=== PATIENT | female | born 1990 | race Caucasian/White ===

== ENCOUNTER 2016-05-17 08:50 | Day surgery (SDC) | payer OTHER ==
[2016-05-17] VITALS (7 sets, daily range): BP systolic 108–135; BP diastolic 58–72
[~2016-05-17] VITALS: Ht 167.6 cm; Wt 87.3 kg
[~2016-05-17 08:50] MED LIST: HYCET1 ML PO
--- NOTE | 2016-05-17 10:28 | DIAGNOSTIC IMAGING REPORT ---
PROCEDURE: US ABDOMEN ULTRASOUND-LIMITED INDICATION: RUQ PAIN, initial encounter TECHNIQUE: Hay scale and color Doppler sonographic images of the abdomen were obtained. COMPARISON: None. FINDINGS: 9 mm mobile gallstone. There is no wall thickening or pericholecystic fluid. Normal CBD measures 2.7 mm. Negative Rob's sign. Liver measures 19.8 cm with normal echo structure. Normal pancreas. Aorta and IVC are patent. Normal hepatopetal flow. Normal right kidney measures 12 cm. IMPRESSION: 1. Gallstone
--- NOTE | 2016-05-17 11:32 | ED CLINICAL REPORT ---
Clinical Report - Physicians/Mid Levels [facility] [address] [place] [address] 05/17/2016 8:51 Patient: KYLEE BEAVER Time Seen: 09:34. Arrived- By private vehicle. Historian- patient. HISTORY OF PRESENT ILLNESS Chief Complaint: ABDOMINAL PAIN. At its maximum, severity described as 8 / 10. When seen in the E.D., severity described as 8 / 10. Modifying factors- worsened by movement. This started at 1 AM and is still present. It was abrupt in onset. It is described as "pain" and it is described as located in the right upper quadrant and radiating to the upper back. The patient has had vomiting (10 times). She has had diarrhea (10 times). Similar symptoms previously: Twice. ( Known GB disease). Recent medical care: Not recently seen/assessed. REVIEW OF SYSTEMS Last normal menstrual period- 7 days ago. Sexual history - sexually active. No contraception. No difficulty with urination or urination, pain with urination or urinary frequency or urinary frequency. No chills, fever, double vision, ear pain or sore throat. No chest pain, cough, difficulty breathing, black stools or bloody stools. No neck pain or skin rash. Last bowel movement: recently. The patient has had diarrhea, nausea and vomiting. All systems otherwise negative, except as recorded above. PAST HISTORY PCP: [facility] Ops: [facility], Breast BX x 2 Hospitalization: As above. SOCIAL HISTORY Current every day smoker. ADDITIONAL NOTES The nursing notes have been reviewed. PHYSICAL EXAM Vital Signs: 05/17/2016 13:10 BP: 107/53. HR: 85. RR: 14. O2 saturation: 100%. Temp: 98.8 F. Pain level now: 12/09. 05/17/2016 12:53 BP: 107/53. HR: 73. RR: 15. O2 saturation: 100%. Temp: 98.8 F. Pain level now: 12/09. 05/17/2016 12:00 BP: 131/58. HR: 71. RR: 18. O2 saturation: 99%. Temp: 98.2 F. Pain level now: 12/09. 05/17/2016 11:00 BP: 109/67. HR: 70. RR: 12. O2 saturation: 98%. Temp: 98.3 F. Pain level now: 11/08. 05/17/2016 10:38 BP: 111/58. HR: 94. RR: 20. O2 saturation: 100%. Pain level now: 12/09. 05/17/2016 09:46 BP: 106/56. HR: 69. RR: 21. O2 saturation: 96%. Pain level now: 12/09. 05/17/2016 08:57 BP: 126/75. HR: 107. RR: 22. O2 saturation: 97%. Temp: 97.8 F. Pain level now: 02/08. Appearance: Alert. Patient in moderate distress. Eyes: Pupils equal, round and reactive to light. Eyes normal inspection. No scleral icterus. ENT: Pharynx normal. Neck: Normal inspection. CVS: Heart sounds normal. Respiratory: No respiratory distress. Breath sounds normal. Abdomen: Soft. Moderate tenderness in the upper abdomen and right upper quadrant. Bowel sounds normal. No rebound tenderness or guarding. (No inguinal hernias). Back: No CVA tenderness. Skin: Skin warm. Normal skin color. Extremities: Extremities exhibit normal ROM. No lower extremity edema. LABS, X-RAYS, AND EKG Abdominal Sonogram: Gallstones are present. No gallbladder wall thickening, pericholecystic fluid or dilated common duct. The study was interpreted by the radiologist and discussed with the radiologist. Laboratory Tests: UA-Culture if indicated: (NEETA: 05/17/2016 09:00) ( MsgRcvd 05/17/2016 09:59) Final results Test Result Flag Units (Reference) URINE COLOR YELLOW URINE APPEARANCE CLEAR URINE GLUCOSE NEGATIVE (NEGATIVE) URINE BILIRUBIN NEGATIVE (NEGATIVE) URINE KETONE NEGATIVE (NEGATIVE) URINE SPECIFIC GRAVITY 1.025 (1.010-1.030) URINE PH 6.0 (5.0-8.0) URINE PROTEIN NEGATIVE (NEGATIVE) URINE UROBILINOGEN 0.2 EU/dL (0.2-1.0) URINE NITRITE NEGATIVE (NEGATIVE) URINE BLOOD NEGATIVE (NEGATIVE) URINE LEUK ESTERASE NEGATIVE (NEGATIVE) URINE RBC NONE SEEN rbc/hpf (0-1) URINE WBC NONE SEEN wbc/hpf (0-1) URINE EPITHELIAL CELLS 1-3 EPI/hpf (0-5) URINE BACTERIA NONE SEEN (NONE SEEN) URINE COMMENT CULT NOT INDICATED 1+ MUCOUSURINE CULTURES ARE SET-UP BASED ON THE FOLLOWING CRITERIA:POSITIVE NITRITEPOSITIVE LEUKOCYTE ESTERASEGREATER THAN 10 WHITE BLOOD CELLSMODERATE (2+) OR GREATER BACTERIA Urine: (NEETA: 05/17/2016 09:00) ( [facility]/17[facility] 09:27) Final results Test Result Flag Units (Reference) URINE NEGATIVE CBC w Diff: (NEETA: 05/17/2016 09:12) ( [facility] 05/17/2016 10:44) Final results Test Result Flag Units (Reference) WHITE BLOOD COUNT 4.9 K/uL (4.5-11.5) RED BLOOD COUNT 4.97 M/uL (4.00-5.20) HEMOGLOBIN 11.0 L gm/dL (12.0-16.0) HEMATOCRIT 35.3 L % (36.0-46.0) MEAN CELL VOLUME 71 L fL (80-100) MEAN CORPUSCULAR HGB 22 L pg (26-34) MEAN CORPUSCULAR HGB CONC 31 g/dL (31-37) RED CELL DISTRIBUTION WIDTH 16.1 H % (11.6-14.8) PLATELET COUNT 221 K/uL (150-400) POLY % 83 H % (50-75) BAND % 9 H % (0-8) LYMPH 2 L % (25-40) MONO 4 % (3-14) EOSINOPHIL % 2 % (0-4) BASOPHIL % 0 % (0-2) METAMYELOCYTE % 0 % (0-1) MYELOCYTE 0 % (0-1) OTHER CELL TYPE 0 HYPOCHROMIA 2+ ANISOCYTOSIS 1+ MICROCYTOSIS 2+ STOMATOCYTE OCC CMP: (NEETA: 05/17/2016 09:12) ( [facility] 05/17/2016 09:56) Final results Test Result Flag Units (Reference) GLUCOSE 118 H mg/dL (70-110) BUN 9 mg/dL (7-18) CREATININE 0.6 mg/dL (0.6-1.3) Estimated GFR >60 mL/min Estimated GFR- >60 mL/min Note: Persistent reduction over 3 months in eGFR<60 mL/min/1.73 m2 defines CKD. Patients with eGFR values>=60 mL/min/1.73 m2 may also have CKD if evidence ofpersistent proteinuria. Additional information may be foundat www.kidney.org. SODIUM 137 mmol/L (136-145) POTASSIUM 3.7 mmol/L (3.5-5.1) CHLORIDE 103 mmol/L (98-107) CARBON DIOXIDE 22 mmol/L (21-32) CALCIUM 8.5 mg/dL (8.5-10.1) TOTAL PROTEIN 7.9 g/dL (6.4-8.2) ALBUMIN 3.8 g/dL (3.3-5.0) BILIRUBIN, TOTAL 0.3 mg/dL (0.0-1.0) ALKALINE PHOSPHATASE 86 U/L (46-116) AST (SGOT) 16 U/L (15-37) ALT (SGPT) 21 U/L (12-78) LIPASE 110 U/L (73-393) . PROGRESS AND PROCEDURES Course of Care: 10:14 05/17/16. DELGADO- none. Dr Trivedi is here to see the patient and sign his standard orders. Transition orders written by me. Disposition orders written. CLINICAL IMPRESSION Abdominal pain. Biliary colic. (Electronically signed by Fritz Wood MD 05/17/2016 23:15)
--- NOTE | 2016-05-17 11:32 | ED ORDER SUMMARY ---
..... Patient: KYLEE BEAVER OrderSheet [facility] VisitID: [id number] [address] [place] [address] 26y, F Registration Date/Time: 05/17/2016 ORDER SHEET Weight: 87.0 kg (stated) Allergies: No Known Drug Allergy GENERAL ORDERS: Urine Urgent (09:18 05/17/2016 EHkacey R.N. verbal order read back to Aga FRENCH) (9:36 EHassan R.N.) UA-Culture if indicated Urgent (09:05/17/2016 HOMAassashanti R.N. verbal order read back to Aga FRENCH) (9:36 EHassan R.N.) US Abdomen Limited (Yes) Urgent (09:35 05/17/2016 Aga FRENCH) (9:36 EHassan R.N.) CBC w Diff Urgent (09:35 05/17/2016 Aga FRENCH) (9:36 EHassan R.N.) CMP Urgent (09:05/17/2016 Aga FRENCH) (9:36 HOMAassashanti R.N.) Lipase Urgent (09:35 05/17/2016 Aga FRENCH) (9:36 EHassan R.N.) MEDICATION ORDERS: IV FLUIDS: Zofran IV 4 mg (NOW) (09:35 05/17/2016 Aga FRENCH) (9:44 EHassan R.N.) Dilaudid IV 1 mg (NOW) (09:35 05/17/2016 Aga FRENCH) (9:43 EHassan R.N.) Dilaudid IV 0.5 mg (HIGH ALERT MEDICATION, NOW) (11:29 05/17/2016 Zandern R.N. verbal order read back to Aga FRENCH) (11:33 EHassan R.N.) ORDER SHEET NOTES: [Electronically signed by Nora Flor R.N. (13:13 05/17/2016)] [Electronically locked/signed by Nora Flor R.N. (13:13 05/17/2016)]
--- NOTE | 2016-05-17 11:32 | ED NURSING NOTES ---
Clinical Report - Nurses [facility] [place] [address] 05/17/2016 8:51 Patient: KYLEE BEAVER TRIAGE Acuity: LEVEL 3. Chief Complaint: ABDOMINAL PAIN, NAUSEA, VOMITING and DIARRHEA. Alert. No acute distress. SEPSIS SCREEN: Sepsis Screen. Negative (no infection suspected/documented). --09:03 Jesika Reyna R.N. 08:57 05/17/16. BP: 126/75. HR: 107. RR: 22. O2 saturation: 97% on room air. Temp: 97.8 F (oral). Pain level now: 02/08. --09:03 Jesika Reyna R.N. Weight: 87 kg stated. Height/Length: 66 inches Per Patient. BMI: 31. --09:00 Jesika Reyna R.N. Medications Omeprazole Oral. --08:59 Jesika Reyna R.N. FLUoxetine HCl Oral. --08:59 Jesika Reyna R.N. Medication/allergy information source: the patient. --09:03 Jesika Reyna R.N. Allergies No Known Drug Allergy. --08:59 Jesika Reyna R.N. History Arrived by private vehicle. Historian: patient. Accompanied by spouse. Primary physician (César). This started last night. Describes the quality as "pain" and cramping. Relates location as in the right upper quadrant. Notes pain level as 10/10 on arrival and at maximum. Reports last BM was today. 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 (hydrocodone). PAST MEDICAL HX: Last normal menstrual period was 1 week ago. Sexual history - sexually active and engages in unprotected sex. SOCIAL HX: Current every day heavy tobacco smoker (cigarette)- 1 pack per day. History of heavy drug use: marijuana. No alcohol use. FALL RISK ASSESSMENT: Fall risk assessment completed. No fall risk identified. NUTRITIONAL RISK ASSESSMENT: The nutritional risk assessment revealed no deficiencies. FUNCTIONAL ASSESSMENT: Functional assessment: no impairments noted. LEARNING NEEDS ASSESSMENT: The learning needs assessment revealed no barriers. SKIN INTEGRITY ASSESSMENT: Skin integrity risk assessment completed. No skin integrity risk identified. --09:03 Jesika Reyna R.N. PROBLEMS: Gastroenteritis. Sick Contact. Abdominal Pain. Appendicitis. Chronic Back Pain. UTI - Urinary Tract Infection. Spontaneous (Miscarriage). Right ovarian cyst. Intrauterine . Vaginal Bleeding. Care. Food Poisoning. Anemia. Substance Abuse. Ureterolithiasis. Viral Disease. Diarrhea. Vomiting. --09:00 Jesika Reyna R.N. ADDITIONAL SURGERIES: Appendectomy. . Lumpectomy. --09:00 Jesika Reyna R.N. Assessment GENERAL / NEURO / PSYCH: Alert. Oriented X 4. Appears in no acute distress. Sharon Coma Scale: 15- eyes open spontaneously (4); best verbal response- oriented x 4 (5); best motor response- obeys commands (6). Patient appears calm and cooperative. RESPIRATORY: Respirations not labored. CVS: Capillary refill less than 2 seconds. SKIN: Mucous membranes are pink. Skin is warm and dry. --09:03 Jesika Reyna R.N. Interventions ID band on patient. To treatment room. --09:03 Jesika Reyna R.N. PHYSICAL ASSESSMENT 09:03 05/17/16. Ambulatory to room. GENERAL / NEURO / PSYCH: Alert. Oriented X 4. Appears in no acute distress. HEENT: Mucous membranes are pink. RESPIRATORY: Respirations not labored. CVS: Capillary refill less than 2 seconds. SKIN: Skin is warm and dry. --09:03 Jesika Reyna R.N. NURSING PROGRESS NOTES Checked patient name and birthdate: patient confirmed. Instructions provided to collect clean catch urine and patient verbalized understanding. Clean catch urine collected with return of yellow-colored clear urine; sample sent to lab for urinalysis and HCG. Specimen labeled in the presence of the patient. --08:58 Jesika Reyna R.N. 09:03 05/17/16. Patient gowned. Two patient identifiers checked. Bed placed in lowest position. Brakes of bed on. Patient ready for evaluation- chart flagged and ED physician notified. --09:03 Jesika Reyna R.N. 09:24 05/17/2016 Site #1 started via IV in the left wrist with an 20g angiocath; one attempt. Blood drawn: rainbow set. Labeled in the presence of the patient and sent to the lab. Saline lock flushed with 10 mL saline. --09:24 Nora Flor R.N. 09:40 05/17/2016 Zofran (Ondansetron HCl) IVP 4 mg given over 2 minute(s) via site #1. Allergies verified and confirmed 5 rights. IV patency established. IV site checked: no pain, redness, or swelling. IV flushed thoroughly pre- and post-medication administration. --09:44 Nora Flor R.N. 09:43 05/17/2016 Dilaudid (HYDROmorphone HCl PF) IVP 1 mg given over 30 second(s) via site #1. Allergies verified, confirmed 5 rights and sedative warning given to the patient and patient's family. IV patency established. IV site checked: no pain, redness, or swelling. IV flushed thoroughly pre- and post-medication administration. --09:43 Nora Flor R.N. Reassurance given. Reassessment after medication administered. She has had no adverse reaction. GI / : The patient reports nausea. The patient reports abdominal pain. The patient reports diarrhea. Abdomen soft. Abdominal tenderness in the upper abdomen and right upper quadrant. Hyperactive bowel sounds in all quadrants. Two patient identifiers checked. Call light placed in reach. Side rails up x 1. Bed placed in lowest position. Brakes of bed on. --09:47 Nora Flor R.N. 09:46 05/17/16. BP: 106/56 taken on the right arm, via an automated monitor, while lying. HR: 69. RR: 21. O2 saturation: 96% on room air. Pain level now: 12/09. ED physician notified. Additional comments: Dilaudid given as ordered. --09:47 Nora Flor R.N. 10:38 05/17/16. BP: 111/58 taken on the right arm, via an automated monitor, while lying. HR: 94. RR: 20. O2 saturation: 100% on room air. Pain level now: 12/09. --10:41 Nora Flor R.N. Reassurance given. Reassessment after procedure and medication administered. She has had no adverse reaction. Overall patient status is the same- she states feels worse. ( US finished and pt is now c/o of pain of 8/10 post procedure.). GI / : The patient reports nausea. The patient reports abdominal pain. Denies diarrhea or vomiting. Call light placed in reach. Side rails up x 1. Bed placed in lowest position. Brakes of bed on. Brakes of chair on. --10:41 Nora Flor R.N. 10:00 05/17/2016 Zofran IVP Response: no adverse reaction symptoms have improved. --11:16 Nora Flor R.N. 10:16 05/17/2016 Dilaudid IVP Response: no adverse reaction symptoms have improved the patient feels better. --11:16 Nora Flor R.N. 11:33 05/17/2016 Dilaudid (HYDROmorphone HCl PF) IVP 0.5 mg given over 30 second(s) via site #1. Allergies verified, confirmed 5 rights and sedative warning given to the patient. IV patency established. IV site checked: no pain, redness, or swelling. IV flushed thoroughly pre- and post-medication administration. --11:33 Nora Flor R.N. Reassurance given. Reassessment after medication administered. Overall patient status is the same- she states feels better. ( Dr. Wood at bedside, explanation given to pt as to results of US, Dilaudid given as ordered, no further vomiting). GI / : The patient reports nausea. The patient reports abdominal pain. Denies diarrhea or vomiting. Two patient identifiers checked. Call light placed in reach. Side rails up x 1. Brakes of bed on. Brakes of chair on. --11:36 Nora Flor R.N. 11:00 05/17/16. BP: 109/67 taken on the left arm, via an automated monitor, while lying. HR: 70. RR: 12. O2 saturation: 98% on room air. Temp: 98.3 F. Pain level now: 710. Additional comments: Dilaudid 0.5mg given as ordered. --11:36 Nora Flor R.N. 12:00 05/17/16. BP: 131/58 (regular adult cuff) taken on the right arm, via an automated monitor, while lying. HR: 71. RR: 18. O2 saturation: 99% on room air. Temp: 98.2 F. Pain level now: 12/09. --12:44 Nora Flor R.N. late entry - 12:00 PM. Reassurance given. ( Dr. Armstrong at bedside, pt being admitted to room 301.). GI / : The patient reports abdominal pain. --12:44 Nora Flor R.N. 12:45 05/17/2016 Dilaudid IVP Response: no adverse reaction pain is improving. Symptoms are the same. The patient feels the same. --12:45 Nora Flor R.N. Reassurance given. The patient is calm. Overall patient status- she states feels the same. ( Will be transferred to unit and then surgery, awaiting on RN to call to send pt upstairs). GI / : The patient reports nausea. The patient reports abdominal pain. Denies diarrhea or vomiting. Abdomen soft. Bowel sounds within normal limits. SKIN: Skin is warm and dry. Skin color within normal limits. Care transferred and report given (RN for 301). --12:55 Nora Flor R.N. 12:53 05/17/16. BP: 107/53 taken on the right arm, via an automated monitor, while lying. HR: 73. RR: 15. O2 saturation: 100%. Temp: 98.8 F (oral). Pain level now: 12/09. --12:55 Nora Flor R.N. DISPOSITION / DISCHARGE 13:11 05/17/2016 Site #1 reassessed; patent and no signs of infection or infiltration. Line flushed with saline. Good blood return present. Converted to saline lock. Flushed with saline. --13:11 Nora Flor R.N. Departure time: 1311 PM. Condition at departure: unchanged and stable. The goals identified in the patient's plan of care were met. Transferred (1311 PM). Transported via wheelchair by transport team. ( Pt transferred safely to room 301). FALL RISK ASSESSMENT: Fall risk assessment completed. No fall risk identified. --13:12 Nora Flor R.N. 13:10 05/17/16. BP: 107/53 taken on the right arm, while lying. HR: 85. RR: 14. O2 saturation: 100%. Temp: 98.8 F (oral). Pain level now: 12/09. --13:13 Nora Flor R.N. Locked/Released at 05/17/2016 13:13 by Nora Flor R.N.
--- NOTE | 2016-05-17 11:32 | ED ORDER SUMMARY ---
..... Patient: KYLEE BEAVER OrderSheet [facility] VisitID: [id number] [address] [place] [address] 26y, F Registration Date/Time: 05/17/2016 ORDER SHEET Weight: 87.0 kg (stated) Allergies: No Known Drug Allergy GENERAL ORDERS: Urine Urgent (09:18 05/17/2016 EHkacey R.N. verbal order read back to Aga FRENCH) (9:36 EHassan R.N.) UA-Culture if indicated Urgent (09:05/17/2016 HOMAassashanti R.N. verbal order read back to Aga FRENCH) (9:36 EHassan R.N.) US Abdomen Limited (Yes) Urgent (09:35 05/17/2016 Aga FRENCH) (9:36 EHassan R.N.) CBC w Diff Urgent (09:35 05/17/2016 Aga FRENCH) (9:36 EHassan R.N.) CMP Urgent (09:05/17/2016 Aga FRENCH) (9:36 HOMAassashanti R.N.) Lipase Urgent (09:35 05/17/2016 Aga FRENCH) (9:36 EHassan R.N.) MEDICATION ORDERS: IV FLUIDS: Zofran IV 4 mg (NOW) (09:35 05/17/2016 Aga FRENCH) (9:44 EHassan R.N.) Dilaudid IV 1 mg (NOW) (09:35 05/17/2016 Aga FRENCH) (9:43 EHassan R.N.) Dilaudid IV 0.5 mg (HIGH ALERT MEDICATION, NOW) (11:29 05/17/2016 Zandern R.N. verbal order read back to Aga FRENCH) (11:33 EHassan R.N.) ORDER SHEET NOTES: [Electronically signed by Nora Flor R.N. (13:13 05/17/2016)] [Electronically locked/signed by Nora Flor R.N. (13:13 05/17/2016)]
[2016-05-17] MEDS ORDERED: PRILOSEC20 MG PO (14:01)
[2016-05-17] MEDS ORDERED: FLUOXETINE HCL20 MG PO (14:02)
--- NOTE | 2016-05-17 15:46 | DIAGNOSTIC IMAGING REPORT ---
PROCEDURE: XR INTRAOPERATIVE LAP PER INDICATION: LAP PER WITH GRAMS TECHNIQUE: Intraoperative fluoroscopy provided for Dr. Armstrong performing an intraoperative cholangiogram following cholecystectomy. Total fluoroscopy time 0.1-minute Cumulative dose 3.6 mGy. COMPARISON: Abdominal ultrasound 05/07/2015 FINDINGS: One intraoperative fluoroscopic spot images of the right upper quadrant of the abdomen demonstrate cannulation of the cystic duct stump and opacification of the intrahepatic and extrahepatic biliary tree. There are no filling defects. There is normal passage of contrast into the duodenum. IMPRESSION: 1. Negative intraoperative cholangiogram.
[2016-05-17] MEDS ORDERED: PERCOCET1 TA1 PO (16:02)
--- NOTE | 2016-05-17 16:03 | Provider's Discharge Care Plan ---
Problem, Goal, Plan Problem List 1. S/P laparoscopic cholecystectomy
--- NOTE | 2016-05-17 16:03 | Provider's Discharge Care Plan ---
Problem, Goal, Plan Problem List 1. S/P laparoscopic cholecystectomy
--- NOTE | 2016-05-17 16:26 | CONSULTATION REPORT ---
DATE OF CONSULTATION: 05/17/2016 CHIEF COMPLAINT: 1. Abdominal pain HISTORY OF PRESENT ILLNESS: The patient is a 26-year-old woman who presented with abdominal pain and vomiting since 10 p.m. yesterday. The patient reports that she had similar, more mild symptoms occurring about once a month. She is known to have cholelithiasis and has been told that she is having gallbladder attacks about monthly, and was apparently considering surgery. On this occasion, the attack became worse and would not relent. There is no history of jaundice or pancreatitis. MEDICAL/SURGICAL HISTORY: Medical history of GERD and posttraumatic anxiety. Past surgical history is x2 in 2013 and 2014, breast biopsy for benign mass. Laparoscopic appendectomy about 2 months ago. MEDICATIONS: 1. Fluoxetine for depression and anxiety. 2. Omeprazole for GERD. ALLERGIES: 1. VICODIN, CAUSING NAUSEA AND VOMITING. THE PATIENT CAN TOLERATE PERCOCET. SOCIAL HISTORY: The patient is . She smokes about 1 pack per day. Does not take alcohol. 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 The patient's first child at age 3 from a brain cancer, which is the source of the patient's posttraumatic anxiety. FAMILY HISTORY: There is a family history of kidney stones. Her parents are alive and well. REVIEW OF SYSTEMS: A multipoint review of systems was obtained, covering at least 12 systems. The patient reports no additional symptoms in any of the systems covered with her today. PHYSICAL EXAMINATION: VITAL SIGNS: Initial blood pressure 126/75, heart rate of 107, respirations 22, temperature 97.8, O2 saturation 97%. GENERAL: The patient is alert and cooperative. Her mental status is normal. She is oriented to time and place. Her cranial nerves all appear to function well. She has normal facial movements. HEENT: Her ears and nose demonstrate no gross external lesions. Eyes are equal. There is no icterus. NECK: Without palpable masses or thyromegaly. There is no lymphadenopathy. CHEST: Clear to auscultation. HEART: Regular, without murmur or gallop. ABDOMEN: Reveals some fresh laparoscopic scars. Otherwise, there is tenderness in the right upper quadrant with localized involuntary guarding, but negative Rob sign. Bowel sounds are active. EXTREMITIES: Symmetric. She appears to moves without restriction. IMPRESSION: 1. Cholelithiasis with acute and chronic cholecystitis PLAN: I recommended the patient undergo a laparoscopic cholecystectomy with cholangiography. I reviewed with the patient the potential risks, such as infection, bleeding, scars, pain, damage to local structures, common duct stones and pancreatitis. She appeared to understand these and other risks of surgery and would like to proceed with surgery as described to her.
--- NOTE | 2016-05-17 19:51 | OPERATIVE REPORT ---
DATE OF SURGERY: 05/17/2016 SURGEON:Александр Trivedi MD TESTING PROJECTS ADMINISTRATOR: Patrica Perez III, MD PREOPERATIVE DIAGNOSIS: 1. Cholelithiasis with acute and chronic cholecystitis POSTOPERATIVE DIAGNOSIS: 1. Cholelithiasis with acute and chronic cholecystitis PROCEDURE PERFORMED: 1. Laparoscopic cholecystectomy with cholangiography ANESTHESIA: General. INDICATIONS: The patient is a 26-year-old woman with unremitting right upper quadrant abdominal pain and cholelithiasis. SURGICAL TECHNIQUE: The patient was taken to the operating room, where a general anesthetic was administered and patient prepped and draped in usual sterile fashion. An orogastric tube, IV antibiotics, and sequential compression devices were in place. A local anesthetic of 0.5% Marcaine with epinephrine was used at each incision site. An infraumbilical incision was made and a Veress needle used to insufflate the abdominal cavity. A 10 mm cannula was passed and visualization was obtained. This demonstrated some adhesions in the lower abdomen from previous and appendectomy. The upper abdomen was visualized and there were no adhesions in this area. Three additional trocars were placed in the usual position. The gallbladder was elevated. It was found be somewhat opaque, but not acutely distended. The omental adhesions were taken down with blunt and electrocautery dissection. The cystic duct was isolated at neck of the gallbladder. A clip was placed and a fluoroscopic cholangiogram carried out demonstrating free flow into duodenum and no filling defects. The cystic duct and cystic artery were both doubly clipped and divided and the gallbladder stripped from the gallbladder fossa using electrocautery. It was delivered to the upper midline trocar site where it was emptied of bile and removed and submitted for histopathology. The operative site was inspected and found to be hemostatic. A small amount of additional Marcaine with epinephrine was instilled and gas was evacuated. The midline skin sites were closed with interrupted subcuticular 4-0 Vicryl suture. Steri-Strips and dressings were placed at all sites. The patient left in good condition.
--- NOTE | 2016-05-17 23:15 | ED MAR SUMMARY ---
..... Medication Administration Record [facility] [address] [place] [address] Patient: KYLEE BEAVER Visit ID: [id number] 26y, F Weight: 87.0 kg Height/Length: 66 in BMI: 31 ALLERGIES: No Known Drug Allergy Given 09:40 05/17/2016 Nora Flor R.N. Medication Administered: ZOFRAN [IVP] (ONDANSETRON HCL), Dose: 4 mg IVP over 2 minute(s), Site: #1 left wrist. Medication Ordered: Zofran IV 4 mg (NOW). Given 09:43 05/17/2016 Nora Flor R.N. Medication Administered: DILAUDID [IVP] (HYDROMORPHONE HCL PF), Dose: 1 mg IVP over 30 second(s), Site: #1 left wrist. Medication Ordered: Dilaudid IV 1 mg (NOW). Given 11:33 05/17/2016 Nora Flor R.NDenae Medication Administered: DILAUDID [IVP] (HYDROMORPHONE HCL PF), Dose: 0.5 mg IVP over 30 second(s), Site: #1 left wrist. Medication Ordered: Dilaudid IV 0.5 mg (HIGH ALERT MEDICATION, NOW).
--- NOTE | 2016-05-17 23:15 | ED MED RECONCILIATION SUMMARY ---
Patient: KYLEE BEAVER Medication Reconciliation Report [facility] VisitID: [id number] [address] [place] [address] 26y, F Registration Date/Time: 05/17/2016 Weight: 87.0 kg Height/Length: 66 in. BMI: 31.0 ALLERGIES: No Known Drug Allergy The patient's Home Medications are listed below: THE FOLLOWING MEDICATIONS NEED TO BE RECONCILED: FLUoxetine HCl Oral Omeprazole Oral The source(s) of the original Home Medication information: patient The following Medications were given to the patient in the Emergency Department: Dilaudid [IVP] IVP 1 mg, administered: 05/17/2016 9:43:00 AM Zofran [IVP] IVP 4 mg, administered: 05/17/2016 9:40:00 AM Dilaudid [IVP] IVP 0.5 mg, administered: 05/17/2016 11:33:00 AM The following Medications were prescribed to the patient: None.
--- NOTE | 2016-05-17 23:15 | ED MED RECONCILIATION SUMMARY ---
Patient: KYLEE BEAVER Medication Reconciliation Report [facility] VisitID: [id number] [address] [place] [address] 26y, F Registration Date/Time: 05/17/2016 Weight: 87.0 kg Height/Length: 66 in. BMI: 31.0 ALLERGIES: No Known Drug Allergy The patient's Home Medications are listed below: THE FOLLOWING MEDICATIONS NEED TO BE RECONCILED: FLUoxetine HCl Oral Omeprazole Oral The source(s) of the original Home Medication information: patient The following Medications were given to the patient in the Emergency Department: Dilaudid [IVP] IVP 1 mg, administered: 05/17/2016 9:43:00 AM Zofran [IVP] IVP 4 mg, administered: 05/17/2016 9:40:00 AM Dilaudid [IVP] IVP 0.5 mg, administered: 05/17/2016 11:33:00 AM The following Medications were prescribed to the patient: None.
--- NOTE | 2016-05-17 23:15 | ED DISCHARGE INSTRUCTIONS ---
Patient: KYLEE BEAVER General Instructions [facility] VisitID: [id number] [address] [place] [address] 26y, F Registration Date/Time: 05/17/2016 Abdominal pain. Biliary colic. (Electronically signed by Fritz Wood MD 05/17/2016 23:15)
--- NOTE | 2016-05-17 23:15 | ED DISCHARGE INSTRUCTIONS ---
Patient: KYLEE BEAVER General Instructions [facility] VisitID: [id number] [address] [place] [address] 26y, F Registration Date/Time: 05/17/2016 Abdominal pain. Biliary colic. (Electronically signed by Fritz Wood MD 05/17/2016 23:15)
--- NOTE | 2016-05-17 23:15 | ED MAR SUMMARY ---
..... Medication Administration Record [address] [place] [address] Patient: KYLEE BEAVER Visit ID: [id number] 26y, F Weight: 87.0 kg Height/Length: 66 in BMI: 31 ALLERGIES: No Known Drug Allergy Given 09:40 05/17/2016 Nora Flor R.N. Medication Administered: ZOFRAN [IVP] (ONDANSETRON HCL), Dose: 4 mg IVP over 2 minute(s), Site: #1 left wrist. Medication Ordered: Zofran IV 4 mg (NOW). Given 09:43 05/17/2016 Nora Flor R.N. Medication Administered: DILAUDID [IVP] (HYDROMORPHONE HCL PF), Dose: 1 mg IVP over 30 second(s), Site: #1 left wrist. Medication Ordered: Dilaudid IV 1 mg (NOW). Given 11:33 05/17/2016 Nora Flor R.NDenae Medication Administered: DILAUDID [IVP] (HYDROMORPHONE HCL PF), Dose: 0.5 mg IVP over 30 second(s), Site: #1 left wrist. Medication Ordered: Dilaudid IV 0.5 mg (HIGH ALERT MEDICATION, NOW).
== END 2016-05-17 19:42 | disposition home or self-care (01) ==
LOC: ED SRH 08:50 → TRANS SRH 11:49 → CC SRH 13:11 → SDC SRH 13:11 → CC SRH 13:32 → SDC SRH 13:48 → CC SRH 13:48 → SDC SRH 13:50 → CC SRH 13:50 → SDC SRH 19:42
PROVIDERS: Surgery
PROC: 0FT44ZZ Resection of Gallbladder, Percutaneous Endoscopic Approach (ICD-10-PCS; principal; 2016-05-17 14:45)
PROC: BF131ZZ Fluoroscopy of Gallbladder and Bile Ducts using Low Osmolar Contrast (ICD-10-PCS; principal; 2016-05-17 14:45)
DX: K80.12 Calculus of gallbladder with acute and chronic cholecystitis without obstruction (principal); R11.2 Nausea with vomiting, unspecified; Z72.0 Tobacco use

== ENCOUNTER 2016-05-20 19:00 | Emergency (ER) | payer OTHER ==
[~2016-05-20 19:00] MED LIST changes: +FLUOXETINE HCL20 MG PO; +PERCOCET1 TA1 PO; +PRILOSEC20 MG PO
--- NOTE | 2016-05-20 20:28 | DIAGNOSTIC IMAGING REPORT ---
PROCEDURE: XR CHEST 2 VIEW INDICATION: FEVER, initial encounter TECHNIQUE: PA and lateral view. COMPARISON: Chest x-ray 05/08/2015 FINDINGS: Poor inspiration with small left basilar infiltrate. Cardiovascular structures are normal. Bony thorax is unremarkable. IMPRESSION: 1. Small left basilar infiltrate versus atelectasis.
--- NOTE | 2016-05-20 22:51 | ED ORDER SUMMARY ---
..... Patient: KYLEE BEAVER OrderSheet [facility] VisitID: [id number] [address] [place], [place] [id number] 26y, F Registration Date/Time: 05/20/2016 ORDER SHEET Weight: 87.0 kg (stated) Allergies: No Known Drug Allergy GENERAL ORDERS: Chest 2V Urgent (20:05/20/2016 EKoroleva P.A.-C) (Ack 20:03 LTapper) (20:19 EInderbitzen R.N.) CBC w Diff Urgent (20:05/20/2016 EKoroleva P.A.-C) (Ack 20:03 LTapper) (20:06 EInderbitzen R.N.) CMP Urgent (:05/20/2016 EKoroleva P.A.-C) (Ack 20:03 LTapper) (20:06 EInderbitzen R.N.) UA-Culture if indicated Urgent (20:05/20/2016 EKoroleva P.A.-C) (Ack 20:03 LTapper) (20:06 EInderbitzen R.N.) Lipase Urgent (:05/20/2016 EKoroleva P.A.-C) (Ack 20:03 LTapper) (20:06 EInderbitzen R.N.) NPO (20:05/20/2016 EKoroleva P.A.-C) (20:06 EInderbitzen R.N.) MEDICATION ORDERS: Phenergan IV 12.5 mg (HIGH ALERT MEDICATION, NOW) (20:19 05/20/2016 EKoroleva P.A.-C) (20:24 EInderbitzen R.N.) Azithromycin PO 500 mg (NOW) (22:05/20/2016 EKoroleva P.A.-C) (23:02 TLewis R.N.) Phenergan IV 12.5 mg (HIGH ALERT MEDICATION, NOW) (22:27 05/20/2016 EKoroleva P.A.-C) (22:36 EInderbitzen R.N.) Hydrocodone-APAP PO 5/325 mg (NOW, HIGH ALERT MEDICATION) (22:27 05/20/2016 EKoroleva P.A.-C) (22:37 EInderbitzen R.N.) IV FLUIDS: IV NS : initial bolus 1000 mL (1000 mL/hr), then 1000 mL/hr for X1 (NOW); Skyler (19:59 05/20/2016 EKoroleva P.A.-C) (20:07 EInderbitzen R.N.) Dilaudid IV 0.5 mg (HIGH ALERT MEDICATION, NOW) (19:59 05/20/2016 EKoroleva P.A.-C) (20:24 EInderbitzen R.N.) Zofran IV 4 mg (NOW) (22:27 05/20/2016 EKoroleva P.A.-C) (22:36 EInderbitzen R.N.) ORDER SHEET NOTES: [Electronically signed by Benjie Blackwell R.N. (23:08 05/20/2016)] [Electronically signed by Sofi Urrutia P.A.-C (13:10 05/21/2016)] [Electronically locked/signed by Benjie Blackwell R.N. (23:08 05/20/2016)]
--- NOTE | 2016-05-20 22:51 | ED CLINICAL REPORT ---
Clinical Report - Physicians/Mid Levels [facility] [address] [place] [address] 05/20/2016 19:00 Patient: KYLEE BEAVER Time Seen: 2016. Arrived- By private vehicle. Historian- patient. HISTORY OF PRESENT ILLNESS Chief Complaint: ABDOMINAL PAIN. 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 (A 26-year-old female, 4 days postop, developed pains well as fevers up to 102 and 103 over the last 2 days, has positive flatus. Some urgency with urination. Has had emesis. No sick contacts. Weakness. Family recently ill with flulike symptoms. She denies shortness of breath, lower extremity swelling. She is out of her medications, and thent and persistent since surgery, pain to the area is not new.). Recent medical care: The patient was seen recently and hospitalized. ( holly weber). REVIEW OF SYSTEMS No constipation, black stools, difficulty with urination, pain with urination or urinary frequency. No chest pain. She has had fever. All systems otherwise negative, except as recorded above. PAST HISTORY Problems: Biliary Colic. Gastroenteritis. Sick Contact. Abdominal Pain. Appendicitis. Chronic Back Pain. UTI - Urinary Tract Infection. Spontaneous (Miscarriage). Right ovarian cyst. Intrauterine . Vaginal Bleeding. Care. OB History. Food Poisoning. Anemia. Substance Abuse. Ureterolithiasis. Viral Disease. Diarrhea. Vomiting. Additional Surgeries: Appendectomy. Cholecystectomy. . Lumpectomy. Medications: Zofran ODT Oral. Omeprazole Oral. FLUoxetine HCl Oral. Allergies: No Known Drug Allergy. SOCIAL HISTORY Smoker- current status unknown. History of drug use: marijuana. No alcohol use. ADDITIONAL NOTES The nursing notes have been reviewed. PHYSICAL EXAM Vital Signs: 05/20/2016 23:03 BP: 109/54. HR: 85. RR: 15. O2 saturation: 95%. Appearance: Alert. No acute distress. ENT: Nose normal. Pharynx normal. Neck: Normal inspection. Neck supple. CVS: Normal heart rate and rhythm. Heart sounds normal. Respiratory: No respiratory distress. Breath sounds normal. No decreased air movement or rales. Abdomen: Mild tenderness diffusely. (incisions appear clean dry and intact no surrounding erythema.). Skin: Skin warm. No rash. Neuro: Oriented X 3. LABS, X-RAYS, AND EKG Chest X-ray: (IMPRESSION: 1. Small left basilar infiltrate versus atelectasis. Electronically Final signed by:Oswaldo Wilhelm MD 05/20/2016 8:28:45 PM). Laboratory Tests: UA-Culture if indicated: (NEETA: 05/20/2016 19:50) ( MsgRcvd 05/20/2016 20:35) Final results Test Result Flag Units (Reference) URINE COLOR YELLOW URINE APPEARANCE CLEAR URINE GLUCOSE NEGATIVE (NEGATIVE) URINE BILIRUBIN NEGATIVE (NEGATIVE) URINE KETONE 2+ (NEGATIVE) URINE SPECIFIC GRAVITY 1.025 (1.010-1.030) URINE PH 6.5 (5.0-8.0) URINE PROTEIN TRACE (NEGATIVE) URINE UROBILINOGEN 0.2 EU/dL (0.2-1.0) URINE NITRITE NEGATIVE (NEGATIVE) URINE BLOOD 1+ (NEGATIVE) URINE LEUK ESTERASE NEGATIVE (NEGATIVE) URINE RBC 1-3 rbc/hpf (0-1) URINE WBC 1-3 wbc/hpf (0-1) URINE EPITHELIAL CELLS 5-10 EPI/hpf (0-5) URINE BACTERIA TRACE (<1+) (NONE SEEN) URINE COMMENT CULT NOT INDICATED 1+ MUCUSURINE CULTURES ARE SET-UP BASED ON THE FOLLOWING CRITERIA:POSITIVE NITRITEPOSITIVE LEUKOCYTE ESTERASEGREATER THAN 10 WHITE BLOOD CELLSMODERATE (2+) OR GREATER BACTERIA CBC w Diff: (NEETA: 05/20/2016 19:50) ( [facility] 05/20/2016 20:25) Final results Test Result Flag Units (Reference) WHITE BLOOD COUNT 5.6 K/uL (4.5-11.5) RED BLOOD COUNT 4.78 M/uL (4.00-5.20) HEMOGLOBIN 11.1 L gm/dL (12.0-16.0) HEMATOCRIT 34.5 L % (36.0-46.0) MEAN CELL VOLUME 72 L fL (80-100) MEAN CORPUSCULAR HGB 23 L pg (26-34) MEAN CORPUSCULAR HGB CONC 32 g/dL (31-37) RED CELL DISTRIBUTION WIDTH 16.5 H % (11.6-14.8) PLATELET COUNT 156 K/uL (150-400) NEUTROPHIL % 77.4 H % (50-75) LYMPH % 15.9 L % (25-40) MONO % 6.5 % (3-14) EOSINOPHIL % 0 % (0-4) BASOPHIL % 0.2 % (0-2) CMP: (NEETA: 05/20/2016 19:50) ( MsgRcvd 05/20/2016 20:52) Final results Test Result Flag Units (Reference) GLUCOSE 92 mg/dL (70-110) BUN 5 L mg/dL (7-18) CREATININE 0.5 L mg/dL (0.6-1.3) Estimated GFR >60 mL/min Estimated GFR- >60 mL/min Note: Persistent reduction over 3 months in eGFR<60 mL/min/1.73 m2 defines CKD. Patients with eGFR values>=60 mL/min/1.73 m2 may also have CKD if evidence ofpersistent proteinuria. Additional information may be foundat www.kidney.org. SODIUM 140 mmol/L (136-145) POTASSIUM 3.2 L mmol/L (3.5-5.1) CHLORIDE 104 mmol/L (98-107) CARBON DIOXIDE 25 mmol/L (21-32) CALCIUM 8.3 L mg/dL (8.5-10.1) TOTAL PROTEIN 7.0 g/dL (6.4-8.2) ALBUMIN 3.3 g/dL (3.3-5.0) BILIRUBIN, TOTAL 0.3 mg/dL (0.0-1.0) ALKALINE PHOSPHATASE 73 U/L (46-116) AST (SGOT) 28 U/L (15-37) ALT (SGPT) 26 U/L (12-78) LIPASE 108 U/L (73-393) . PROGRESS AND PROCEDURES Course of Care: Patient here in the ER doing well, family with recent influenza symptoms. Patient also with fevers, small amount of atelectasis noticed on chest x-ray, given postop fever, will treat with antibiotics. She may have a virus in addition, discussed this with the patient. 05/20/2016 23:03 BP: 109/54. HR: 85. RR: 15. O2 saturation: 95%. 05/20/2016 21:25 BP: 122/77. HR: 78. RR: 16. O2 saturation: 95%. 05/20/2016 20:25 BP: 123/77. HR: 88. RR: 20. O2 saturation: 95%. Patient is stable. Physical exam findings are improved. Symptoms better. Patient/family counseled. Disposition: Discharged. Condition: good. CLINICAL IMPRESSION Acute fever Acute bronchitis. INSTRUCTIONS Drink plenty of fluids. Warnings: Further evaluation is necessary. Prescription Medications: Hydrocodone/APAP 5mg / 325mg: take 1 orally every 6 hours as needed for pain. Dispense twelve (12). No refill. Zithromax 250 mg tablets: take 2 orally today, followed by 1 daily for the next 4 days. No refills. Substitution is permissible. tamiflu 75 mg po once daily. Follow-up: Follow up with your doctor in three days. (Electronically signed by Sofi Urrutia P.A.-C 05/21/2016 13:10)
--- NOTE | 2016-05-20 22:51 | ED NURSING NOTES ---
Clinical Report - Nurses [facility] [address] [place] [address] 05/20/2016 19:00 Patient: KYLEE BEAVER TRIAGE Triage time 19:14 May 20 2016. Acuity: LEVEL 3. Chief Complaint: (Post operative Choly, fever). SEPSIS SCREEN: Sepsis Screen: negative. Negative (no infection suspected/documented). SHARON COMA SCORE: Sharon Coma Scale: 15- eyes open spontaneously (4); best verbal response- oriented x 4 (5); best motor response- obeys commands (6). --19:18 Smita Jon 19:14 05/20/16. BP: 124/78. HR: 94. RR: 18. O2 saturation: 95% on room air. Temp: 99 F (oral). Pain level now: 12/09. --19:18 Smita Jon ( Patient took PO tylenol about 5 hours ago). --19:22 Smita Jon. Weight: 87 kg stated. Height/Length: 66 inches Per Patient. BMI: 31. --19:16 Smita Jon. Medications FLUoxetine HCl Oral. --19:16 Smita Jon Omeprazole Oral. --19:16 Smita Jon Zofran ODT Oral. --19:16 Smita Jon. Medication/allergy information source: the patient. --19:18 Smita Jon. Allergies No Known Drug Allergy. --19:17 Smita Jon. History Arrived by private vehicle. Historian: patient. Unaccompanied. Onset. (SUrgery Tuesday, Fever began today). ( Patient reports removal of gallbladder on Tuesday by Dr. Trivedi. She reports vomiting and fever that began about five hours ago. She attempted to contact Dr. Trivedi and was unable to be seen.). PAST MEDICAL HX: Immunizations: up-to-date. Last normal menstrual period- 2 weeks ago. SOCIAL HX: Heavy tobacco smoker (cigarette)- 1 pack per day. History of drug use: marijuana. No alcohol use. No infectious disease exposure. ABUSE ASSESSMENT: No report of abuse. FALL RISK ASSESSMENT: Fall risk assessment completed. No fall risk identified. NUTRITIONAL RISK ASSESSMENT: The nutritional risk assessment revealed no deficiencies. FUNCTIONAL ASSESSMENT: Functional assessment: no impairments noted. LEARNING NEEDS ASSESSMENT: The learning needs assessment revealed no barriers. SKIN INTEGRITY ASSESSMENT: Skin integrity risk assessment completed. No skin integrity risk identified. --19:18 Smita Jon Primary physician (Melvina Lindsey). --19:18 Smita Jon. PROBLEMS: Appendicitis. UTI - Urinary Tract Infection. Spontaneous (Miscarriage). Right ovarian cyst. Anemia. Substance Abuse. Ureterolithiasis. --19:17 Smita Jon. ADDITIONAL SURGERIES: Appendectomy. Cholecystectomy. . Lumpectomy. --19:17 Smita Jon. Interventions ID band on patient. To treatment room. --19:18 Smita Jon. PHYSICAL ASSESSMENT Ambulatory to room. Patient gowned. GENERAL / NEURO / PSYCH: Alert. Oriented X 4. Appears in pain and anxious. HEENT: Mucous membranes are pink. RESPIRATORY: Respirations not labored. CVS: Capillary refill less than 2 seconds. SKIN: Skin is warm and dry. Normal skin turgor. ( 4 small [address] in place.). --19:52 Vanda Hurst R.N. NURSING PROGRESS NOTES Patient gowned. Head of bed elevated. Two patient identifiers checked. Call light placed in reach. Side rails up x 2. Bed placed in lowest position. Brakes of bed on. Patient ready for evaluation. --19:52 Vanda Hurst R.N. 19:52 05/20/16. BP: 127/77. HR: 80. RR: 22. O2 saturation: 95%. Pain level now: 12/09. 19:14 05/20/16. BP: 124/78. HR: 94. RR: 18. O2 saturation: 95% on room air. Temp: 99 F (oral). Pain level now: 12/09. --19:53 Vanda Hurst R.N. ( Ran out of pain med yesterday). --19:53 Vanda Hurst R.N. 19:54 05/20/16. Temp: 98.8 F. --19:54 Vanda Hurst R.N. 20:02 05/20/2016 Site #1 started via IV in the right antecubital space with an 20g angiocath, with aseptic technique and good blood return; one attempt. Blood drawn: rainbow set. Labeled in the presence of the patient and sent to the lab. Saline lock flushed with 10 mL saline. --20:06 Bharati Hidalgo R.N. 20:03 05/20/2016 Started bag #1 1000 mL IV Fluids IV NS (Saline); at 999 mL/hr over 1 hour(s) via site #1 via IV pump. Allergies verified and confirmed 5 rights. IV patency established. IV site checked: no pain, redness, or swelling. IV flushed thoroughly pre- and post-medication administration. --20:07 Bharati Hidalgo R.N. 20:19 05/20/16. ( x rays completed, returned to room). --20:19 Bharati Hidalgo R.N. 20:20 05/20/2016 PHENERGAN (Promethazine HCl) IVP 12.5 mg given over 3 minute(s) via site #1. Allergies verified and confirmed 5 rights. IV patency established. IV site checked: no pain, redness, or swelling. IV flushed thoroughly pre- and post-medication administration. IVP given by RN. --20:24 Bharati Hidalgo R.N. 20:24 05/20/2016 Dilaudid (HYDROmorphone HCl PF) IVP 0.5 mg given over 1 minute(s) via site #1. Allergies verified, confirmed 5 rights and sedative warning given to the patient. IV patency established. IV site checked: no pain, redness, or swelling. IV flushed thoroughly pre- and post-medication administration. IVP given by RN. --20:24 Bharati Hidalgo R.N. 20:25 05/20/16. Pulse oximeter and NIBP monitor placed on patient; monitor alarms on. --20:25 Bharati Hidalgo R.N. 20:05/20/16. BP: 123/77. HR: 88. RR: 20. O2 saturation: 95%. Pain level now 8/10. --20:25 Bharati Hidalgo R.N. 20:05/20/16. ( medicated for pain and nausea). --20:25 Bharati Hidalgo R.NDenae 21:05/20/16. The patient is sleeping. RESPIRATORY: No respiratory distress. SKIN: Skin is warm and dry. --21:25 Bharati Hidalgo R.N. 21:05/20/16. BP: 122/77. HR: 78. RR: 16. O2 saturation: 95%. --21:25 Bharati Hidalgo R.N. 21:05/20/2016 IV Fluids IV NS Discontinued: bag #1 infused. Total amount infused: 1000 mL. IV patency established. IV site checked: no pain, redness, or swelling. IV flushed thoroughly. --21:25 Bharati Hidalgo R.N. 22:05/20/16. Reassessment after fluids administered and medication administered. Overall patient status is worse- she states feels worse. ( pain worsening). GI / : The patient reports nausea is still present and worsening. --22:28 Bharati Hidalgo R.N. 22:30 05/20/2016 Zofran (Ondansetron HCl) IVP 4 mg given over 1 minute(s) via site #1. Allergies verified and confirmed 5 rights. IV patency established. IV site checked: no pain, redness, or swelling. IV flushed thoroughly pre- and post-medication administration. IVP given by RN. --22:36 Bharati Hidalgo R.N. 22:33 05/20/2016 PHENERGAN (Promethazine HCl) IVP 12.5 mg given over 3 minute(s) via site #1. Allergies verified and confirmed 5 rights. IV patency established. IV site checked: no pain, redness, or swelling. IV flushed thoroughly pre- and post-medication administration. IVP given by RN. --22:36 Bharati Hidalgo R.N. 22:37 05/20/2016 Hydrocodone-APAP (Hydrocodone-Acetaminophen) PO 5/325 mg Tablets 1 tab given. Allergies verified, confirmed 5 rights and sedative warning given to the patient. --22:37 Bharati Hidalgo R.N. 23:02 05/20/2016 Azithromycin PO 500 mg given. Allergies verified and confirmed 5 rights. --23:02 Benjie Blackwell R.N. DISPOSITION / DISCHARGE 23:04 05/20/2016 Site #1 removed upon discharge. Catheter intact. Bandage applied. --23:04 Benjie Blackwell R.N. Departure time: 23:07. Condition at departure: improved. No learning barriers present. Discharge instructions provided and reviewed with the patient. Reviewed warnings. Reviewed medication(s). Treatments reviewed. Patient verbalized understanding. Written instructions provided in Upper Sorbian. The patient was discharged by the physician surveyor's assistant. She was discharged home and accompanied by family. She left the Emergency Department ambulatory and via private vehicle. Family member driving. --23:07 Benjie Blackwell R.N. 23:03 05/20/16. BP: 109/54. HR: 85. RR: 15. O2 saturation: 95%. Pain level now 4/10. --23:07 Benjie Blackwell R.N. Locked/Released at 05/20/2016 23:08 by Benjie Blackwell R.N.
--- NOTE | 2016-05-20 22:51 | ED ORDER SUMMARY ---
..... Patient: KYLEE BEAVER OrderSheet [facility] VisitID: [id number] [address] [place], [place] [id number] 26y, F Registration Date/Time: 05/20/2016 ORDER SHEET Weight: 87.0 kg (stated) Allergies: No Known Drug Allergy GENERAL ORDERS: Chest 2V Urgent (20:05/20/2016 EKoroleva P.A.-C) (Ack 20:03 LTapper) (20:19 EInderbitzen R.N.) CBC w Diff Urgent (20:05/20/2016 EKoroleva P.A.-C) (Ack 20:03 LTapper) (20:06 EInderbitzen R.N.) CMP Urgent (:05/20/2016 EKoroleva P.A.-C) (Ack 20:03 LTapper) (20:06 EInderbitzen R.N.) UA-Culture if indicated Urgent (20:05/20/2016 EKoroleva P.A.-C) (Ack 20:03 LTapper) (20:06 EInderbitzen R.N.) Lipase Urgent (:05/20/2016 EKoroleva P.A.-C) (Ack 20:03 LTapper) (20:06 EInderbitzen R.N.) NPO (20:05/20/2016 EKoroleva P.A.-C) (20:06 EInderbitzen R.N.) MEDICATION ORDERS: Phenergan IV 12.5 mg (HIGH ALERT MEDICATION, NOW) (20:19 05/20/2016 EKoroleva P.A.-C) (20:24 EInderbitzen R.N.) Azithromycin PO 500 mg (NOW) (22:05/20/2016 EKoroleva P.A.-C) (23:02 TLewis R.N.) Phenergan IV 12.5 mg (HIGH ALERT MEDICATION, NOW) (22:27 05/20/2016 EKoroleva P.A.-C) (22:36 EInderbitzen R.N.) Hydrocodone-APAP PO 5/325 mg (NOW, HIGH ALERT MEDICATION) (22:27 05/20/2016 EKoroleva P.A.-C) (22:37 EInderbitzen R.N.) IV FLUIDS: IV NS : initial bolus 1000 mL (1000 mL/hr), then 1000 mL/hr for X1 (NOW); Skyler (19:59 05/20/2016 EKoroleva P.A.-C) (20:07 EInderbitzen R.N.) Dilaudid IV 0.5 mg (HIGH ALERT MEDICATION, NOW) (19:59 05/20/2016 EKoroleva P.A.-C) (20:24 EInderbitzen R.N.) Zofran IV 4 mg (NOW) (22:27 05/20/2016 EKoroleva P.A.-C) (22:36 EInderbitzen R.N.) ORDER SHEET NOTES: [Electronically signed by Benjie Blackwell R.N. (23:08 05/20/2016)] [Electronically signed by Sofi Urrutia P.A.-C (13:10 05/21/2016)] [Electronically locked/signed by Benjie Blackwell R.N. (23:08 05/20/2016)]
--- NOTE | 2016-05-21 13:11 | ED MED RECONCILIATION SUMMARY ---
Patient: KYLEE BEAVER Medication Reconciliation Report [facility] VisitID: [id number] [address] [place] [address] 26y, F Registration Date/Time: 05/20/2016 Weight: 87.0 kg Height/Length: 66 in. BMI: 31.0 ALLERGIES: No Known Drug Allergy The patient's Home Medications are listed below: THE FOLLOWING MEDICATIONS NEED TO BE RECONCILED: FLUoxetine HCl Oral Omeprazole Oral Zofran ODT Oral The source(s) of the original Home Medication information: patient The following Medications were given to the patient in the Emergency Department: IV NS IV Fluids bolus 0, then 999 mL/hr, administered: 05/20/2016 8:03:00 PM PHENERGAN [IVP] IVP 12.5 mg, administered: 05/20/2016 8:20:00 PM Dilaudid [IVP] IVP 0.5 mg, administered: 05/20/2016 8:24:00 PM Zofran [IVP] IVP 4 mg, administered: 05/20/2016 10:30:00 PM PHENERGAN [IVP] IVP 12.5 mg, administered: 05/20/2016 10:33:00 PM Hydrocodone-APAP [PO] PO 1 tab, administered: 05/20/2016 10:37:00 PM Azithromycin [PO] PO 500 mg, administered: 05/20/2016 11:02:00 PM The following Medications were prescribed to the patient: Hydrocodone/APAP 5mg / 325mg: take 1 orally every 6 hours as needed for pain. Dispense twelve (12). No refill. -- Sofi Urrutia, P.A.-Donna tamiflu 75 mg po once daily. -- Sofi Urrutia, P.A.-Donna Zithromax 250 mg tablets: take 2 orally today, followed by 1 daily for the next 4 days. No refills. Substitution is permissible. -- Sofi Urrutia P.A.-C
--- NOTE | 2016-05-21 13:11 | ED MAR SUMMARY ---
..... Medication Administration Record [facility] [address] [place] [address] Patient: KYLEE BEAVER Visit ID: [id number] 26y, F Weight: 87.0 kg Height/Length: 66 in BMI: 31 ALLERGIES: No Known Drug Allergy Start 20:03 05/20/2016 Bharati Hidalgo R.N., Stop 21:25 05/20/2016 Bharati Hidalgo R.N. Medication Administered: IV NS (SALINE), Dose: IV Fluids over 1 hour(s), Rate: 999 mL/hr, Dispensed: 1000 mL bag, Site: #1 right AC. Medication Ordered: IV NS : initial bolus 1000 mL (1000 mL/hr), then 1000 mL/hr for X1 (NOW); Skyler. Given 20:20 05/20/2016 Bharati Hidalgo R.N. Medication Administered: PHENERGAN [IVP] (PROMETHAZINE HCL), Dose: 12.5 mg IVP over 3 minute(s), Site: #1 right AC. Medication Ordered: Phenergan IV 12.5 mg (HIGH ALERT MEDICATION, NOW). Given 20:24 05/20/2016 Bharati Hidalgo R.N. Medication Administered: DILAUDID [IVP] (HYDROMORPHONE HCL PF), Dose: 0.5 mg IVP over 1 minute(s), Site: #1 right AC. Medication Ordered: Dilaudid IV 0.5 mg (HIGH ALERT MEDICATION, NOW). Given 22:30 05/20/2016 Bharati Hidalgo R.N. Medication Administered: ZOFRAN [IVP] (ONDANSETRON HCL), Dose: 4 mg IVP over 1 minute(s), Site: #1 right AC. Medication Ordered: Zofran IV 4 mg (NOW). Given 22:33 05/20/2016 Bharati Hidalgo R.N. Medication Administered: PHENERGAN [IVP] (PROMETHAZINE HCL), Dose: 12.5 mg IVP over 3 minute(s), Site: #1 right AC. Medication Ordered: Phenergan IV 12.5 mg (HIGH ALERT MEDICATION, NOW). Given 22:37 05/20/2016 Bharati Hidalgo R.N. Medication Administered: HYDROCODONE-APAP [PO] (HYDROCODONE-ACETAMINOPHEN), Dose: 1 tab 5/325 mg Tablets PO. Medication Ordered: Hydrocodone-APAP PO 5/325 mg (NOW, HIGH ALERT MEDICATION). Given 23:02 05/20/2016 Benjie Blackwell R.N. Medication Administered: AZITHROMYCIN [PO], Dose: 500 mg PO. Medication Ordered: Azithromycin PO 500 mg (NOW).
--- NOTE | 2016-05-21 13:11 | ED DISCHARGE INSTRUCTIONS ---
Patient: KYLEE BEAVER General Instructions [facility] VisitID: [id number] [place] [address] 26y, F Registration Date/Time: 05/20/2016 Acute fever Acute bronchitis. INSTRUCTIONS Drink plenty of fluids. Warnings: Further evaluation is necessary. Prescription Medications: Hydrocodone/APAP 5mg / 325mg: take 1 orally every 6 hours as needed for pain. Dispense twelve (12). No refill. Zithromax 250 mg tablets: take 2 orally today, followed by 1 daily for the next 4 days. No refills. Substitution is permissible. tamiflu 75 mg po once daily. Follow-up: Follow up with your doctor in three days. ADDITIONAL INFORMATION Bronchitis (Adult: Abx Tx) BRONCHITIS is an infection of the air passages (bronchial tubes). It often occurs during the common cold. Symptoms include cough with mucus (phlegm) and low-grade fever. Bronchitis usually lasts 7-14 days. Mild cases can be treated with simple home remedies. More severe infection is treated with an antibiotic. Home Care: If symptoms are severe, rest at home for the first 2-3 days. When you resume activity, don't let yourself get too tired. Do not smoke. Avoid being exposed to the smoke of others. You may use acetaminophen (Tylenol) or ibuprofen (Motrin, Advil) to control fever or pain, unless another medicine was prescribed for this. [NOTE: If you have chronic liver or kidney disease or ever had a stomach ulcer or GI bleeding, talk with your doctor before using these medicines.] Your appetite may be poor, so a light diet is fine. Avoid dehydration by drinking 6-8 glasses of fluids per day (water, soft, drinks, juices, tea, soup, etc.). Extra fluids will help loosen secretions in the lungs. Qnlu-[id number]-[id number] cough medicines that containdextromethorphan(such as Robitussin DM) and decongestants (Actifed or Sudafed) may help relieve cough and congestion. [NOTE: Do not use decongestants if you have high blood pressure.] Finish all antibiotic medicine, even if you are feeling better after only a few days. Follow Up with your doctor or as directed if you dont start to feel better after three days. [NOTE: If you are age 65 or older, or if you have chronic asthma or COPD, we recommend a PNEUMOCOCCAL VACCINATION every five years and a yearly INFLUENZAVACCINATION (FLU-SHOT) every . Ask your doctor about this. If you had an X-ray, a radiologist will review it. You will be notified of any new findings that may affect your care.] Get Prompt Medical Attention if any of the following occur: Fever over 100.4F (38.0C) for more than three days Trouble breathing, wheezing or pain with breathing Coughing up blood or increased amounts of colored sputum Weakness, drowsiness, headache, facial pain, ear pain or a stiff neck Febrile Illness, Uncertain Cause (Adult) You have a fever, but the cause is not certain. A fever is a natural reaction of the body to an illness such as infections due to a virus or bacteria. In most cases, the temperature itself is not harmful. It actually helps the body fight infections. A fever does not need to be treated unless you feel very uncomfortable. Sometimes a fever can be an early sign of a more serious infection. Therefore, you should watch for the signs listed below. Home Care: If signs and symptoms are severe, rest at home for the first 2-3 days. When you resume activity, don't let yourself get too tired. Stay away from cigarette smoke (yours and other peoples). You may use acetaminophen (Tylenol) or ibuprofen (Motrin, Advil) to control fever or pain, unless another medicine was prescribed. NOTE: If you have chronic liver or kidney disease or ever had a stomach ulcer or GI bleeding, talk with your doctor before using these medicines. (Aspirin should never be used in anyone under 18 years of age who is ill with a fever. It may cause severe liver damage.) Your appetite may be poor, so a light diet is fine. Avoid dehydration by drinking 6-8 glasses of fluid per day (water, sport drinks such as Gatorade, sodas without caffeine, juices, tea, soup). Extra fluid will help loosen secretions in the nose and lungs. Ezbg-fyj-[id number] products will not shorten the duration of the illness but may be helpful for the following symptoms: cough (Robitussin DM); sore throat (Chloraseptic lozenges or spray); nasal and sinus congestion (Actifed or Sudafed). NOTE: Do not use decongestants if you have high blood pressure. Follow Up with your doctor or as advised if you do not start to improve over the next week. Get Prompt Medical Attention if any of the following occur: Cough with lots of colored sputum (mucus) or blood in your sputum Chest pain, shortness of breath, wheezing or difficulty breathing Severe headache, face, neck, throat or ear pain Feeling drowsy or confused Abdominal pain, repeated vomiting or diarrhea Joint pain or a new rash Burning when urinating Fever of 100.4F (38C) oral or higher, not better with fever medication Feeling weak or dizzy Convulsion Homeworth Diet A bland diet is used for patients with an upset stomach. It consists of foods that are mild and easy to digest. It is better to eat small frequent meals rather than three large meals a day. BEVERAGES OK: Fruit juices, non-caffeinated teas and coffee, non-carbonated jose AVOID: Carbonated beverage, caffeinated tea and coffee, all alcoholic beverages BREAD OK: Refined white, wheat or rye bread, grant or soda crackers, Alessandra toast, plain rolls, bagels AVOID: Whole-grain bread CEREAL OK: Refined cereals: cooked or ready to eat AVOID: Whole grain cereals and granola, or those containing bran, seeds or nuts DESSERTS OK: Peanut butter and all others except those to "avoid" AVOID: Chocolate, cocoa, coconut, popcorn, nuts, seeds, jam, marmalade FRUITS OK: Canned, cooked, frozen or fresh fruits without seeds or tough skin AVOID: Olives, skin and seeds of fruit MEATS OK: All fresh or preserved meat, fish and fowl AVOID: Any that are prepared with those spices to "avoid" CHEESE & EGGS OK: Eggs, cottage cheese, cream cheese, other cheeses AVOID: All cheeses made with those spices to "avoid" POTATOES & PASTA OK: Potato, rice, macaroni, noodles, spaghetti AVOID: None SOUPS OK: All soups without heavy seasoning AVOID: Soups made with those spices to "avoid" VEGETABLES OK: Canned, cooked, fresh or frozen mildly flavored vegetables without seeds, skins or coarse fiber AVOID: Vegetables prepared with those spices to "avoid"; skin and seeds of vegetables and those with coarse fiber SPICES OK: Salt, lemon and [place] juice, vinegar, all extracts, osvaldo, cinnamon, thyme, mace, allspice, paprika AVOID: [place] powder, cloves, pepper, seed spices, garlic, gravy pickles, highly seasoned salad dressings Clear Liquid Diet Clear liquids are any liquid that you can see through as well as those that are very easy to digest. This is used while the body is recovering from irritation or infection of the stomach or intestinal tract. It may also be used before special procedures or surgery. This diet is to be used no more than three days. You may include the following items. Adults Adults should drink a total of 23 quarts of liquid per day. It may be easier to drink small frequent servings rather than a few large ones. Liquids can include: Fruit juices.Strained orange juice or lemonade (no pulp), apple, grape and cranberry juice, clear fruit drinks, sports drinks Beverages.Sport drinks, sodas, mineral water (plain or flavored), tea, black coffee, liquid gelatin (add twice the recommended amount of water) Soups.Clear broth, consomm, bouillon Desserts.Plain gelatin, popsicles, fruit juice bars Children Over 2 years old The following liquids are acceptable for children over age 2: Fruit juices.Strained orange juice or lemonade (no pulp), apple, grape and cranberry juice, clear fruit drinks Beverages. Sports drinks, sodas, mineral water (plain or flavored), tea, liquid gelatin (add twice the recommended amount of water) Soups. Clear broth, consomm, bouillon Desserts. Plain gelatin, popsicles, fruit juice bars Children under 2 years old Oral rehydration fluids such are available at drug stores and most grocery stores without a prescription. Hydrocodone Bitartrate, Acetaminophen Oral tablet What is this medicine? ACETAMINOPHEN; HYDROCODONE (a set a NINO rosa fen; ana droe KOE done) is a pain reliever. It is used to treat mild to moderate pain. How should I use this medicine? Take this medicine by mouth. Swallow it with a full glass of water. Follow the directions on the prescription label. If the medicine upsets your stomach, take the medicine with food or milk. Do not take more than you are told to take. Talk to your borematic operator regarding the use of this medicine in children. This medicine is not approved for use in children. What side effects may I notice from receiving this medicine? Side effects that you should report to your doctor or health critical care registered nurse as soon as possible: allergic reactions like skin rash, itching or hives, swelling of the face, lips, or tongue breathing problems confusion feeling faint or lightheaded, falls stomach pain yellowing of the eyes or skin Side effects that usually do not require medical attention (report to your doctor or health critical care registered nurse if they continue or are bothersome): nausea, vomiting stomach upset What may interact with this medicine? alcohol antihistamines isoniazid medicines for depression, anxiety, or psychotic disturbances medicines for sleep muscle relaxants naltrexone narcotic medicines (opiates) for pain phenobarbital ritonavir tramadol What if I miss a dose? If you miss a dose, take it as soon as you can. If it is almost time for your next dose, take only that dose. Do not take double or extra doses. Where should I keep my medicine? Keep out of the reach of children. This medicine can be abused. Keep your medicine in a safe place to protect it from theft. Do not share this medicine with anyone. Selling or giving away this medicine is dangerous and against the law. Store at room temperature between 15 and 30 degrees C (59 and 86 degrees F). Protect from light. Keep container tightly closed. Throw away any unused medicine after the expiration date. Discard unused medicine and used packaging carefully. Pets and children can be harmed if they find used or lost packages. What should I tell my health care provider before I take this medicine? They need to know if you have any of these conditions: brain tumor Crohn's disease, inflammatory bowel disease, or ulcerative colitis drink more than 3 alcohol-containing drinks per day drug abuse or addiction head injury heart or circulation problems kidney disease or problems going to the bathroom liver disease lung disease, asthma, or breathing problems an unusual or allergic reaction to acetaminophen, hydrocodone, other opioid analgesics, other medicines, foods, dyes, or preservatives or trying to get breast-feeding What should I watch for while using this medicine? Tell your doctor or health critical care registered nurse if your pain does not go away, if it gets worse, or if you have new or a different type of pain. You may develop tolerance to the medicine. Tolerance means that you will need a higher dose of the medicine for pain relief. Tolerance is normal and is expected if you take the medicine for a long time. Do not suddenly stop taking your medicine because you may develop a severe reaction. Your body becomes used to the medicine. This does NOT mean you are addicted. Addiction is a behavior related to getting and using a drug for a non-medical reason. If you have pain, you have a medical reason to take pain medicine. Your doctor will tell you how much medicine to take. If your doctor wants you to stop the medicine, the dose will be slowly lowered over time to avoid any side effects. You may get drowsy or dizzy when you first start taking the medicine or change doses. Do not drive, use machinery, or do anything that may be dangerous until you know how the medicine affects you. Stand or sit up slowly. There are different types of narcotic medicines (opiates) for pain. If you take more than one type at the same time, you may have more side effects. Give your health care provider a list of all medicines you use. Your doctor will tell you how much medicine to take. Do not take more medicine than directed. Call emergency for help if you have problems breathing. The medicine will cause constipation. Try to have a bowel movement at least every 2 to 3 days. If you do not have a bowel movement for 3 days, call your doctor or health critical care registered nurse. Too much acetaminophen can be very dangerous. Do not take Tylenol (acetaminophen) or medicines that contain acetaminophen with this medicine. Many non-prescription medicines contain acetaminophen. Always read the labels carefully. You have been given the following additional information: Bronchitis, Antiobiotic Treatment (Adult) Febrile Illness, Uncertain Cause (Adult) Diet, Homeworth (Adult) Diet, Clear Liquid Hydrocodone Bitartrate, Acetaminophen Oral tablet (Electronically signed by Sofi Urrutia P.A.-C 05/21/2016 13:10)
--- NOTE | 2016-05-21 13:11 | ED MED RECONCILIATION SUMMARY ---
Patient: KYLEE BEAVER Medication Reconciliation Report [facility] VisitID: [id number] [address] [place] [address] 26y, F Registration Date/Time: 05/20/2016 Weight: 87.0 kg Height/Length: 66 in. BMI: 31.0 ALLERGIES: No Known Drug Allergy The patient's Home Medications are listed below: THE FOLLOWING MEDICATIONS NEED TO BE RECONCILED: FLUoxetine HCl Oral Omeprazole Oral Zofran ODT Oral The source(s) of the original Home Medication information: patient The following Medications were given to the patient in the Emergency Department: IV NS IV Fluids bolus 0, then 999 mL/hr, administered: 05/20/2016 8:03:00 PM PHENERGAN [IVP] IVP 12.5 mg, administered: 05/20/2016 8:20:00 PM Dilaudid [IVP] IVP 0.5 mg, administered: 05/20/2016 8:24:00 PM Zofran [IVP] IVP 4 mg, administered: 05/20/2016 10:30:00 PM PHENERGAN [IVP] IVP 12.5 mg, administered: 05/20/2016 10:33:00 PM Hydrocodone-APAP [PO] PO 1 tab, administered: 05/20/2016 10:37:00 PM Azithromycin [PO] PO 500 mg, administered: 05/20/2016 11:02:00 PM The following Medications were prescribed to the patient: Hydrocodone/APAP 5mg / 325mg: take 1 orally every 6 hours as needed for pain. Dispense twelve (12). No refill. -- Sofi Urrutia, P.A.-Donna tamiflu 75 mg po once daily. -- Sofi Urrutia, P.A.-Donna Zithromax 250 mg tablets: take 2 orally today, followed by 1 daily for the next 4 days. No refills. Substitution is permissible. -- Sofi Urrutia P.A.-C
--- NOTE | 2016-05-21 13:11 | ED MAR SUMMARY ---
..... Medication Administration Record [facility] [address] [place] [address] Patient: KYLEE BEAVER Visit ID: [id number] 26y, F Weight: 87.0 kg Height/Length: 66 in BMI: 31 ALLERGIES: No Known Drug Allergy Start 20:03 05/20/2016 Bharati Hidalgo R.N., Stop 21:25 05/20/2016 Bharati Hidalgo R.N. Medication Administered: IV NS (SALINE), Dose: IV Fluids over 1 hour(s), Rate: 999 mL/hr, Dispensed: 1000 mL bag, Site: #1 right AC. Medication Ordered: IV NS : initial bolus 1000 mL (1000 mL/hr), then 1000 mL/hr for X1 (NOW); Skyler. Given 20:20 05/20/2016 Bharati Hidalgo R.N. Medication Administered: PHENERGAN [IVP] (PROMETHAZINE HCL), Dose: 12.5 mg IVP over 3 minute(s), Site: #1 right AC. Medication Ordered: Phenergan IV 12.5 mg (HIGH ALERT MEDICATION, NOW). Given 20:24 05/20/2016 Bharati Hidalgo R.N. Medication Administered: DILAUDID [IVP] (HYDROMORPHONE HCL PF), Dose: 0.5 mg IVP over 1 minute(s), Site: #1 right AC. Medication Ordered: Dilaudid IV 0.5 mg (HIGH ALERT MEDICATION, NOW). Given 22:30 05/20/2016 Bharati Hidalgo R.N. Medication Administered: ZOFRAN [IVP] (ONDANSETRON HCL), Dose: 4 mg IVP over 1 minute(s), Site: #1 right AC. Medication Ordered: Zofran IV 4 mg (NOW). Given 22:33 05/20/2016 Bharati Hidalgo R.N. Medication Administered: PHENERGAN [IVP] (PROMETHAZINE HCL), Dose: 12.5 mg IVP over 3 minute(s), Site: #1 right AC. Medication Ordered: Phenergan IV 12.5 mg (HIGH ALERT MEDICATION, NOW). Given 22:37 05/20/2016 Bharati Hidalgo R.N. Medication Administered: HYDROCODONE-APAP [PO] (HYDROCODONE-ACETAMINOPHEN), Dose: 1 tab 5/325 mg Tablets PO. Medication Ordered: Hydrocodone-APAP PO 5/325 mg (NOW, HIGH ALERT MEDICATION). Given 23:02 05/20/2016 Benjie Blackwell R.N. Medication Administered: AZITHROMYCIN [PO], Dose: 500 mg PO. Medication Ordered: Azithromycin PO 500 mg (NOW).
== END 2016-05-20 23:05 | disposition home or self-care (01) ==
LOC: ED SRH 19:00
DX: J20.9 Acute bronchitis, unspecified (principal); R50.9 Fever, unspecified; Z98.890 Other specified postprocedural states; F17.200 Nicotine dependence, unspecified, uncomplicated
CPT/HCPCS: 90004; 90100; 92235; 95059

== ENCOUNTER 2016-07-07 05:19 | Emergency (ER) | payer OTHER ==
--- NOTE | 2016-07-07 09:48 | DIAGNOSTIC IMAGING REPORT ---
PROCEDURE: US COMPLETE PELVIC INDICATION: PELVIC PAIN TECHNIQUE: Transabdominal youngblood scale and color Doppler sonographic images. COMPARISON: CT abdomen/pelvis 04/01/2016 FINDINGS: Anteverted uterus measures 6 x 4.8 x 3.5 cm. Myometrium is unremarkable. Normal endometrium measures 6.2 mm. Right ovary measures 3.6 x 2.4 x 3.1 cm with small follicles and vascular flow. Left ovary not visualized. No adnexal mass or free fluid in the cul-de-sac. IMPRESSION: 1. Left ovary not visualized, otherwise negative pelvic ultrasound
--- NOTE | 2016-07-08 02:31 | ED MED RECONCILIATION SUMMARY ---
Patient: KYLEE BEAVER Medication Reconciliation Report [facility] VisitID: [id number] [address] [place] [address] 26y, F Registration Date/Time: 07/07/2016 Weight: 95.2 kg Height/Length: 67 in. BMI: 32.9 ALLERGIES: No Known Drug Allergy The patient's Home Medications are listed below: CONTINUE TAKING THE FOLLOWING MEDICATIONS: FLUoxetine HCl Oral Omeprazole Oral Zofran ODT Oral The source(s) of the original Home Medication information: Not obtained. The following Medications were given to the patient in the Emergency Department: IV NS IV Fluids bolus 1000 mL wide open, administered: 07/07/2016 5:52:00 AM Zofran [IVP] IVP 4 mg, administered: 07/07/2016 5:53:00 AM Toradol [IVP] IVP 15 mg, administered: 07/07/2016 5:53:00 AM Toradol [IVP] IVP 15 mg, administered: 07/07/2016 6:48:00 AM PHENERGAN [IVP] IVP 12.5 mg, administered: 07/07/2016 6:48:00 AM The following Medications were prescribed to the patient: Phenergan suppositories 25 mg: Insert 1 rectally every 4 to 6 hours as needed for nausea or vomiting. Dispense ten (10). No refills. Substitution is permissible. -- Александр Rosales DO
--- NOTE | 2016-07-08 02:31 | ED MAR SUMMARY ---
..... Medication Administration Record [facility] [address] [place] [address] Patient: KYLEE BEAVER Visit ID: [id number] 26y, F Weight: 95.2 kg Height/Length: 67 in BMI: 32.9 ALLERGIES: No Known Drug Allergy Start 05:52 07/07/2016 oBnifacio Yo R.N., Stop 08:27 07/07/2016 Maverick Dong R.N. Medication Administered: IV NS (SALINE), Dose: IV Fluids, Bolus: 1000 mL wide open, Dispensed: 1000 mL bag, Site: #1 right. Medication Ordered: IV NS : initial bolus 1000 mL (1000 mL/hr), then 500 mL/hr for X2 (NOW). Given 05:53 07/07/2016 Bonifacio Yo R.N. Medication Administered: ZOFRAN [IVP] (ONDANSETRON HCL), Dose: 4 mg IVP over 2 minute(s), Site: #1 right. Medication Ordered: Zofran IV 4 mg (NOW). Given 05:53 07/07/2016 Bonifacio Yo R.N. Medication Administered: TORADOL [IVP], Dose: 15 mg IVP over 2 second(s), Site: #1 right. Medication Ordered: Toradol IV 15 mg (NOW). Given 06:48 07/07/2016 Bonifcaio Yo R.N. Medication Administered: TORADOL [IVP], Dose: 15 mg IVP over 2 minute(s), Site: #1 right. Medication Ordered: Toradol IV 15 mg (NOW). Given 06:48 07/07/2016 Bonifacio Yo R.N. Medication Administered: PHENERGAN [IVP] (PROMETHAZINE HCL), Dose: 12.5 mg IVP over 2 minute(s), Site: #1 right. Medication Ordered: Phenergan IV 12.5 mg (HIGH ALERT MEDICATION, NOW).
--- NOTE | 2016-07-08 02:31 | ED DISCHARGE INSTRUCTIONS ---
Patient: KYLEE BEAVER General Instructions [facility] VisitID: [id number] [place] [address] 26y, F Registration Date/Time: 07/07/2016 Vomiting with nausea. Not intractable. Acute left lower quadrant abdominal pain of unknown cause. Chronic substance abuse- tobacco (cigarettes), marijuana with anxiety. INSTRUCTIONS Rest. Do not work today. Drink plenty of fluids. Avoid alcohol. Avoid fatty, fried/greasy, lactose-containing (such as milk, cheese and ice cream), salty and spicy foods. No alcohol until released. Do not smoke. Seek medical help to quit smoking. Warnings: Further evaluation is necessary in order to recheck abnormal lab, obtain test results, conduct further tests and assess the possibility of serious illness (You may need additional imaging tests if not improving as expected). It is very important to follow up with a physician. SEDATIVE MEDICATION: You were given sedative medication during your visit. Do not drive or operate dangerous machinery. CONTROLLED SUBSTANCE WARNINGS. GENERAL WARNINGS: Return or contact your physician immediately if your condition worsens or changes unexpectedly, if not improving as expected, or if other problems arise. Your Current Medications: CONTINUE TAKING THE FOLLOWING MEDICATIONS: FLUoxetine HCl Oral. Omeprazole Oral. Zofran ODT Oral. Prescription Medications: Phenergan suppositories 25 mg: Insert 1 rectally every 4 to 6 hours as needed for nausea or vomiting. Dispense ten (10). No refills. Substitution is permissible. Follow-up: Follow up with your doctor César - AN APPOINTMENT HAS BEEN MADE FOR YOU FOR 4:30 PM TODAY, PLEASE ARRIVE AT 4:20 PM today. ADDITIONAL INFORMATION Vomiting [6Yr-Adult] Vomiting is a common symptom that may be due to different causes. These include gastroenteritis ("stomach flu"), food poisoning and gastritis. There are other more serious causes of vomiting which may be hard to diagnose early in the illness. Therefore, it is important to watch for the warning signs listed below. The main danger from repeated vomiting is dehydration. This is due to excess loss of water and minerals from the body. When this occurs, body fluids must be replaced. Home Care: If symptoms are severe, rest at home for the next 24 hours. You may use acetaminophen (Tylenol) or ibuprofen (Motrin, Advil) to control fever, unless another medicine was prescribed. [NOTE : If you have chronic liver or kidney disease or ever had a stomach ulcer or GI bleeding, talk with your doctor before using these medicines.] (Aspirin should never be used in anyone under 18 years of age who is ill with a fever. It may cause severe liver damage.) Avoid tobacco and alcohol use, which may worsen your symptoms. If medicines for vomiting were prescribed, take as directed. Once vomiting stops, then follow these guidelines: During The First 12-24 Hours follow the diet below: FRUIT JUICES: Apple, grape juice, clear fruit drinks, and electrolyte replacement drinks. BEVERAGES: Soft drinks without caffeine; mineral water (plain or flavored), decaffeinated tea and coffee. SOUPS: Clear broth, consomm and bouillon DESSERTS: Plain gelatin, popsicles and fruit juice bars. As you feel better, you may add 6-8 ounces of yogurt per day. During The Next 24 Hours you may add the following to the above: Hot cereal, plain toast, bread, rolls, crackers Plain noodles, rice, mashed potatoes, chicken noodle or rice soup Unsweetened canned fruit (avoid pineapple), bananas Limit caffeine and chocolate. No spices or seasonings except salt. During The Next 24 Hours Gradually resume a normal diet, as you feel better and your symptoms lessen. Follow Up with your doctor as advised if you are not improving over the next 2-3 days. Get Prompt Medical Attention if any of the following occur: Constant right-sided lower abdominal pain or increasing general abdominal pain Continued vomiting (unable to keep liquids down) for 24 hours Frequent diarrhea (more than 5 times a day); blood (red or black color) or mucus in diarrhea Reduced urine output or extreme thirst Weakness, dizziness or fainting Unusually drowsy or confused Fever of 100.4F (38C) oral or higher, not better with fever medication Yellow color of the eyes or skin Marijuana Abuse Marijuana is the most widely used illegal drug in the [place]. It is called by various names such as pot, weed, blunts, grass, reefer, ganja, hash, hashish. It is usually smoked but can be mixed with foods or brewed as a tea. It is sometimes sold with PCP (Oscar Dust) or amphetamine mixed in it. These drugs can cause other harmful side effects. Marijuana can cause the following effects: Changes in mood (stimulated, happy, drowsy, depressed, paranoid) Hallucinations Increased heart rate and blood pressure Increased appetite Time distortion, difficulty concentrating, impaired memory Lung damage (similar to cigarettes with chronic cough, wheezing, frequent colds and bronchitis) You can become psychologically dependent on marijuana. That means the craving to use the drug is emotional or psychological rather than due to physical withdrawal. Is Marijuana Running Your Life? Here are some of the signs: Relying on marijuana to feel good, forget problems, deal with stress or to relax Wanting to be alone most of the time or only with others who use drugs Losing interest in things that used to be important Changes in school or job performance or attendance Spending a lot of time thinking about how to get marijuana Stealing or selling your things so you can buy marijuana Unable to stop using even though you may want to quit Increasing anxiety, anger,or depression Sleeping too much, changes in eating habits (weight loss or gain) Needing to use more to get the same effect Home Care Once you have become addicted to any drug, quitting is hard to do. Most people find they can't quit without help. So, dont try to do this alone. Talk to someone you trust who can support you. Seek professional help. Avoid people and places where drugs are used. That only increases the temptation to use. Follow Up with your doctor or as advised by our staff. For more information or a referral to a treatment center in your area, contact: Your local mental health center or the National Alcohol and Substance Abuse Information Center (064)-522-4206 www.addictioncareoptions.com National [place] on Alcoholism and Drug Dependence 711-244-PUDC www.ncadd.org Marijuana Anonymous 536-566-8683 www.marijuana-anonymous.org Get Prompt Medical Attention if any of the following occur: You feel extreme depression, fear, anxiety, or anger toward yourself or others You feel out of control You feel that you may try to harm yourself or another Clear Liquid Diet Clear liquids are any liquid that you can see through as well as those that are very easy to digest. This is used while the body is recovering from irritation or infection of the stomach or intestinal tract. It may also be used before special procedures or surgery. This diet is to be used no more than three days. You may include the following items. Adults Adults should drink a total of 23 quarts of liquid per day. It may be easier to drink small frequent servings rather than a few large ones. Liquids can include: Fruit juices.Strained orange juice or lemonade (no pulp), apple, grape and cranberry juice, clear fruit drinks, sports drinks Beverages.Sport drinks, sodas, mineral water (plain or flavored), tea, black coffee, liquid gelatin (add twice the recommended amount of water) Soups.Clear broth, consomm, bouillon Desserts.Plain gelatin, popsicles, fruit juice bars Children Over 2 years old The following liquids are acceptable for children over age 2: Fruit juices.Strained orange juice or lemonade (no pulp), apple, grape and cranberry juice, clear fruit drinks Beverages. Sports drinks, sodas, mineral water (plain or flavored), tea, liquid gelatin (add twice the recommended amount of water) Soups. Clear broth, consomm, bouillon Desserts. Plain gelatin, popsicles, fruit juice bars Children under 2 years old Oral rehydration fluids such are available at drug stores and most grocery stores without a prescription. How To Quit Smoking Smoking is one of the hardest habits to break. About half of all those who have ever smoked have been able to quit, and most of those (about 70%) who still smoke want to quit. Here are some of the best ways to stop smoking. Keep Trying: It takes most smokers about 8 tries before they are finally able to fully quit. So, the more often you try and fail, the better your chance of quitting the next time! So, don't give up! Go Cold [place]: Most ex-smokers quit cold turkey. Trying to cut back gradually doesn't seem to work as well, perhaps because it continues the smoking habit. Also, it is possible to fool yourself by inhaling more while smoking fewer cigarettes. This results in the same amount of nicotine in your body! Get Support: Support programs can make an important difference, especially for the heavy smoker. These groups offer lectures, methods to change your behavior and peer support. Call the free national Quitline for more information. 390-CNJI-ZSB (842-550-7874). Low-cost or free programs are offered by many hospitals, local chapters of the [place] [employer] (371-025-6326) and the [place] [employer] (434-164-8864). Support at home is important too. Non-smokers can help by offering praise and encouragement. If the smoker fails to quit, encourage them to try again! Fpaf-Ard-Simlszo Medicines: For those who can't quit on their own, Nicotine Replacement Therapy (NRT) may make quitting much easier. Certain aids such as the nicotine patch, gum and lozenge are available without a prescription. However, it is best to use these under the guidance of your doctor. The skin patch provides a steady supply of nicotine to the body. Nicotine gum and lozenge gives temporary bursts of low levels of nicotine. Both methods take the edge off the craving for cigarettes. WARNING: If you feel symptoms of nicotine overdose, such as nausea, vomiting, dizziness, weakness, or fast heartbeat, stop using these and see your doctor. Prescription Medicines: After evaluating your smoking patterns and prior attempts at quitting, your doctor may offer a prescription medicine such as bupropion (Zyban, Wellbutrin), varenicline (Chantix, Champix), a niocotine inhaler or nasal spray. Each has its unique advantage and side effects which your doctor can review with you. Health Benefits Of Quitting: The benefits of quitting start right away and keep improving the longer you go without smokin minutes: blood pressure and pulse return to normal 8 hours: oxygen levels return to normal 2 days: ability to smell and taste begins to improve as damaged nerves start to regrow 2-3 weeks: circulation and lung function improves 1-9 months: decreased cough, congestion and shortness of breath; less tired 1 year: risk of heart attack decreases by half 5 years: risk of lung cancer decreases by half; risk of stroke becomes the same as a non-smoker For information about how to quit smoking, visit the following links: National Cancer [place] , Clearing the Air, Quit Smoking Today - an online booklet. http://www.smokefree.gov/pubs/clearing_the_air.pdf Smokefree.gov http://smokefree.gov/ QuitNet http://www.quitnet.com/ Promethazine Hydrochloride Rectal suppository What is this medicine? PROMETHAZINE (proe METH a zeen) is an antihistamine. It is used to treat allergic reactions and to treat or prevent nausea and vomiting from illness or motion sickness. It is also used to make you sleep before surgery, and to help treat pain or nausea after surgery. How should I use this medicine? This medicine is for rectal use only. Do not take by mouth. Wash your hands before and after use. Take off the foil wrapping. Wet the tip of the suppository with cold tap water to make it easier to use. Lie on your side with your lower leg straightened out and your upper leg bent forward toward your stomach. Lift upper buttock to expose the rectal area. Apply gentle pressure to insert the suppository completely into the rectum, pointed end first. Hold buttocks together for a few seconds. Remain lying down for about 15 minutes to avoid having the suppository come out. Do not use more often than directed. Talk to your administrative assistant front desk regarding the use of this medicine in children. Special care may be needed. This medicine should not be given to infants and children younger than 2 years old. What side effects may I notice from receiving this medicine? Side effects that you should report to your doctor or health campground caretaker as soon as possible: blurred vision irregular heartbeat, palpitations or chest pain muscle or facial twitches pain or difficulty passing urine seizures skin rash slowed or shallow breathing unusual bleeding or bruising yellowing of the eyes or skin Side effects that usually do not require medical attention (report to your doctor or health campground caretaker if they continue or are bothersome): headache nightmares, agitation, nervousness, excitability, not able to sleep (these are more likely in children) stuffy nose What may interact with this medicine? Do not take this medicine with any of the following medications: medicines called MAO Inhibitors like Nardil, Parnate, Marplan, Eldepryl other phenothiazines like trimethobenzamide This medicine may also interact with the following medications: barbiturates such as phenobarbital bromocriptine certain antidepressants certain antihistamines used in allergy or cold medicines epinephrine levodopa medicines for sleep medicines for mental problems and psychotic disturbances medicines for movement abnormalities as in Parkinson's disease, or for gastrointestinal problems muscle relaxants prescription pain medicines What if I miss a dose? If you miss a dose, use it as soon as you can. If it is almost time for your next dose, use only that dose. Do not use double doses. Where should I keep my medicine? Keep out of the reach of children. Store in a refrigerator between 2 and 8 degrees C (36 and 46 degrees F). Throw away any unused medicine after the expiration date. What should I tell my health care provider before I take this medicine? They need to know if you have any of these conditions: glaucoma high blood pressure or heart disease kidney disease liver disease lung or breathing disease, like asthma prostate trouble pain or difficulty passing urine seizures an unusual or allergic reaction to promethazine or phenothiazines, other medicines, foods, dyes, or preservatives or trying to get breast-feeding What should I watch for while using this medicine? Tell your doctor or health campground caretaker if your symptoms do not start to get better in 1 to 2 days. You may get drowsy or dizzy. Do not drive, use machinery, or do anything that needs mental alertness until you know how this medicine affects you. To reduce the risk of dizzy or fainting spells, do not stand or sit up quickly, especially if you are an older patient. Alcohol may increase dizziness and drowsiness. Avoid alcoholic drinks. Your mouth may get dry. Chewing sugarless gum or sucking hard candy, and drinking plenty of water may help. Contact your doctor if the problem does not go away or is severe. This medicine may cause dry eyes and blurred vision. If you wear contact lenses you may feel some discomfort. Lubricating drops may help. See your eye doctor if the problem does not go away or is severe. This medicine can make you more sensitive to the sun. Keep out of the sun. If you cannot avoid being in the sun, wear protective clothing and use sunscreen. Do not use sun lamps or tanning beds/booths. If you are diabetic, check your blood-sugar levels regularly. You have been given the following additional information: Vomiting (6Y-Adult) Marijuana Abuse Diet, Clear Liquid Smoking Cessation Promethazine Hydrochloride Rectal suppository Rest. Do not work today. (Electronically signed by Александр Rosales DO 07/07/2016 8:50)
--- NOTE | 2016-07-08 02:31 | ED NURSING NOTES ---
Clinical Report - Nurses Located Within [facility] [address] [place] [address] 07/07/2016 5:21 Patient: KYLEE BEAVER TRIAGE Triage time 05:Jul 07 2016. Acuity: LEVEL 3. Chief Complaint: ABDOMINAL PAIN, NAUSEA and VOMITING. --05:30 Bonifacio Yo R.N. 05:27 07/07/16. BP: 119/84. HR: 102. RR: 18. O2 saturation: 97%. Temp: 99.4 F. Pain level now 02/08. --05:30 Bonifacio Yo R.N. Weight: 95.2 kg stated. Height/Length: 67 inches Per Patient. BMI: 32.9. --05:30 Bonifacio Yo R.N. Medications FLUoxetine HCl Oral. Omeprazole Oral. Zofran ODT Oral. --05:29 Bonifacio Yo R.N. Allergies No Known Drug Allergy. --05:29 Bonifacio Yo R.N. History Arrived by private vehicle. ( Pt states she has had abd pain +3 days with emesis starting yesterday. hx ovarian cyst.). 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 SOCIAL HX: Heavy tobacco smoker. History of occasional drug use: marijuana. No alcohol use. --05:30 Bonifacio Yo R.N. PROBLEMS: Fever. Abdominal Pain. Appendicitis. UTI - Urinary Tract Infection. Right ovarian cyst. --05:29 Bonifacio Yo R.N. ADDITIONAL SURGERIES: Appendectomy. Cholecystectomy. . Lumpectomy. --05:29 Bonifacio Yo R.N. Interventions ID band on patient. To treatment room. --05:30 Bonifacio Yo R.N. PHYSICAL ASSESSMENT GENERAL / NEURO / PSYCH: Alert. Oriented X 4. Appears in pain. GI / : Abdominal tenderness in the left lower quadrant. SKIN: Skin is warm and dry. --05:31 Bonifacio Yo R.N. NURSING PROGRESS NOTES Patient gowned. Two patient identifiers checked. Call light placed in reach. Side rails up x 1. Bed placed in lowest position. Patient placed in chair. --05:31 Bonifacio Yo R.N. 05:52 07/07/2016 Site #1 started via IV in the right with an 20g angiocath; one attempt. Blood drawn: rainbow set. Labeled in the presence of the patient. Saline lock flushed with saline. --05:52 Bonifacio Yo R.N. 05:52 07/07/2016 Started bag #1 1000 mL IV Fluids IV NS (Saline); bolus of 1000 mL wide open via site #1. Allergies verified and confirmed 5 rights. IV patency established. IV site checked: no pain, redness, or swelling. IV flushed thoroughly pre- and post-medication administration. --05:53 Bonifacio Yo R.N. 05:53 07/07/2016 Zofran (Ondansetron HCl) IVP 4 mg given over 2 minute(s) via site #1. Allergies verified and confirmed 5 rights. IV patency established. IV site checked: no pain, redness, or swelling. IV flushed thoroughly pre- and post-medication administration. IVP given by RN. --05:53 Bonifacio Yo R.N. 05:53 07/07/2016 Toradol IVP 15 mg given over 2 second(s) via site #1. Allergies verified and confirmed 5 rights. IV patency established. IV site checked: no pain, redness, or swelling. IV flushed thoroughly pre- and post-medication administration. IVP given by RN. --05:53 Bonifacio Yo R.NDenae 06:48 07/07/2016 Toradol IVP 15 mg given over 2 minute(s) via site #1. Allergies verified and confirmed 5 rights. IV patency established. IV site checked: no pain, redness, or swelling. IV flushed thoroughly pre- and post-medication administration. IVP given by RN. --06:48 Bonifacio Yo R.N. 06:48 07/07/2016 PHENERGAN (Promethazine HCl) IVP 12.5 mg given over 2 minute(s) via site #1. Allergies verified and confirmed 5 rights. IV patency established. IV site checked: no pain, redness, or swelling. IV flushed thoroughly pre- and post-medication administration. IVP given by RN. --06:49 Bonifacio Yo R.N. 06:49 07/07/2016 IV Fluids IV NS via IV site #1 Rate Changed: bag #2 decreased to 500 mL/hr via IV pump. IV patency established. IV site checked: no pain, redness, or swelling. IV flushed thoroughly. Confirmed 5 Rights (2L started). --06:49 Bonifacio Yo R.N. ( Pt asleep in bed, wakes to verbal stimuli, reports minimal change in pain.). --06:56 Bonifacio Yo R.N. ( Report to Gabbie). --07:07 Bonifacio Yo R.N. 07:28 07/07/16. BP: 107/47. HR: 57. RR: 14. O2 saturation: 98%. Pain level now: 12/09. --07:30 Neena Kamara R.N. 07:30 07/07/16. Patient gowned. Two patient identifiers checked. Call light placed in reach. Side rails up x 2. Bed placed in lowest position. Brakes of bed on. Patient informed about reason for wait and about plan of care. --07:30 Neena Kamara R.N. 07:31 07/07/16. --07:31 Neena Kamara R.N. 08:20 07/07/16. BP: 105/61. HR: 60. RR: 16. O2 saturation: 100% on room air. Temp: 98 F (oral). Pain level now: 01/09. --08:21 Maverick Dong R.N. 08:21 07/07/16. --08:21 Maverick Dong R.N. 08:27 07/07/2016 IV Fluids IV NS Discontinued: bag #1 infused. Total amount infused: 1000 mL. IV patency established. IV site checked: no pain, redness, or swelling. IV flushed thoroughly. --08:37 Maverick Dong R.N. DISPOSITION / DISCHARGE 08:36 07/07/2016 Site #1 removed upon discharge. Catheter intact. --08:36 Maverick Dong R.N. 08:36 07/07/16. --08:36 Maverick Dong R.N. 08:20 07/07/16. BP: 105/61. HR: 60. RR: 16. O2 saturation: 100% on room air. Temp: 98 F (oral). Pain level now: 01/09. --08:36 Maverick Dong R.N. 08:38 07/07/16. Condition at departure: improved. The goals identified in the patient's plan of care were met. No learning barriers present. Discharge instructions provided and reviewed with the patient. Reviewed warnings. Reviewed medication(s). Treatments reviewed. Patient verbalized understanding. Written instructions provided in Frisian. The patient was discharged by the physician. She was discharged home and accompanied by family. She left the Emergency Department ambulatory and via private vehicle. Family member driving. FALL RISK ASSESSMENT: Fall risk assessment completed. No fall risk identified. --08:38 Maverick Dong R.N. 08:39 07/07/16. ( Pt aware she has a PCP appt today at 1630 and this is stated on DC instructions. Pt educated and shown that she has a PCP appt that is highlighted on the DC instructions.). --08:39 Maverick Dong R.N. 08:39 07/07/16. Departure time: 08:39. --08:39 Maverick Dong R.N. Locked/Released at 07/07/2016 8:40 by Maverick Dong R.N.
--- NOTE | 2016-07-08 02:31 | ED ORDER SUMMARY ---
..... Patient: KYLEE BEAVER OrderSheet [facility] VisitID: [id number] [address] [place] [address] 26y, F Registration Date/Time: 07/07/2016 ORDER SHEET Weight: 95.2 kg (stated) Allergies: No Known Drug Allergy GENERAL ORDERS: CBC w Diff Urgent (05:42 07/07/2016 PHutchinson DO) (Ack 5:50 CHagerty ER Level Vial Marker) (5:55 DBeyer R.N.) CMP Urgent (05:07/07/2016 PHutchinson DO) (Ack 5:50 CHagerty ER Level Vial Marker) (5:55 DBeyer R.N.) UA-Culture if indicated Urgent (:07/07/2016 PHutchinson DO) (Ack 5:50 CHagerty ER Level Vial Marker) (5:55 DBeyer R.N.) Amylase Urgent (:07/07/2016 PHutchinson DO) (Ack 5:50 CHagerty ER Level Vial Marker) (5:55 DBeyer R.N.) Lipase Urgent (05:07/07/2016 PHutchinson DO) (Ack 5:50 CHagerty ER Level Vial Marker) (5:55 DBeyer R.N.) Urine Drug Screen Urgent (05:07/07/2016 PHutchinson DO) (Ack 5:50 CHagerty ER Level Vial Marker) (5:56 DBeyer R.N.) NPO (05:42 07/07/2016 PHutchinson DO) (5:55 DBeyer R.N.) Urine Urgent (05:45 07/07/2016 PHutchinson DO) (Ack 5:50 CHagerty ER Level Vial Marker) (5:56 DBeyer R.N.) US Pelvic Complete Urgent (05:46 07/07/2016 PHutchinson DO) (Ack 5:52 CHagerty ER Level Vial Marker) (7:33 KHoerner) PCT (Procalcitonin) Urgent (06:15 07/07/2016 PHutchinson DO) (Ack 6:18 CHagerty ER Level Vial Marker) (7:33 KHoerner) MEDICATION ORDERS: Phenergan IV 12.5 mg (HIGH ALERT MEDICATION, NOW) (06:36 07/07/2016 [facility]) (Ack 6:45 RCrebekahier R.N.) (6:49 DBeyer R.N.) IV FLUIDS: IV NS : initial bolus 1000 mL (1000 mL/hr), then 500 mL/hr for X2 (NOW) (05:42 07/07/2016 [facility]) (5:53 DBeyer R.N.) Zofran IV 4 mg (NOW) (05:42 07/07/2016 [facility]) (5:53 DBeyer R.N.) Toradol IV 15 mg (NOW) (05:46 07/07/2016 [facility]) (5:53 DBeyer R.N.) Toradol IV 15 mg (NOW) (06:36 07/07/2016 [facility]) (Ack 6:45 RCollier R.N.) (6:48 DBeyer R.N.) ORDER SHEET NOTES: [Electronically signed by Maverick Dong R.N. (08:40 07/07/2016)] [Electronically signed by Александр Rosales DO (08:50 07/07/2016)] [Electronically locked/signed by Maverick Dong R.N. (08:40 07/07/2016)]
--- NOTE | 2016-07-08 02:31 | ED MED RECONCILIATION SUMMARY ---
Patient: KYLEE BEAVER Medication Reconciliation Report [facility] VisitID: [id number] [address] [place] [place] [address] 26y, F Registration Date/Time: 07/07/2016 Weight: 95.2 kg Height/Length: 67 in. BMI: 32.9 ALLERGIES: No Known Drug Allergy The patient's Home Medications are listed below: CONTINUE TAKING THE FOLLOWING MEDICATIONS: FLUoxetine HCl Oral Omeprazole Oral Zofran ODT Oral The source(s) of the original Home Medication information: Not obtained. The following Medications were given to the patient in the Emergency Department: IV NS IV Fluids bolus 1000 mL wide open, administered: 07/07/2016 5:52:00 AM Zofran [IVP] IVP 4 mg, administered: 07/07/2016 5:53:00 AM Toradol [IVP] IVP 15 mg, administered: 07/07/2016 5:53:00 AM Toradol [IVP] IVP 15 mg, administered: 07/07/2016 6:48:00 AM PHENERGAN [IVP] IVP 12.5 mg, administered: 07/07/2016 6:48:00 AM The following Medications were prescribed to the patient: Phenergan suppositories 25 mg: Insert 1 rectally every 4 to 6 hours as needed for nausea or vomiting. Dispense ten (10). No refills. Substitution is permissible. -- Александр Rosales DO
--- NOTE | 2016-07-08 02:31 | ED ORDER SUMMARY ---
..... Patient: KYLEE BEAVER OrderSheet [facility] VisitID: [id number] [address] [place] [address] 26y, F Registration Date/Time: 07/07/2016 ORDER SHEET Weight: 95.2 kg (stated) Allergies: No Known Drug Allergy GENERAL ORDERS: CBC w Diff Urgent (05:42 07/07/2016 PHutchinson DO) (Ack 5:50 CHagerty ER Net Trainer) (5:55 DBeyer R.N.) CMP Urgent (05:07/07/2016 PHutchinson DO) (Ack 5:50 CHagerty ER Net Trainer) (5:55 DBeyer R.N.) UA-Culture if indicated Urgent (:07/07/2016 PHutchinson DO) (Ack 5:50 CHagerty ER Net Trainer) (5:55 DBeyer R.N.) Amylase Urgent (:07/07/2016 PHutchinson DO) (Ack 5:50 CHagerty ER Net Trainer) (5:55 DBeyer R.N.) Lipase Urgent (05:07/07/2016 PHutchinson DO) (Ack 5:50 CHagerty ER Net Trainer) (5:55 DBeyer R.N.) Urine Drug Screen Urgent (05:07/07/2016 PHutchinson DO) (Ack 5:50 CHagerty ER Net Trainer) (5:56 DBeyer R.N.) NPO (05:42 07/07/2016 PHutchinson DO) (5:55 DBeyer R.N.) Urine Urgent (05:45 07/07/2016 PHutchinson DO) (Ack 5:50 CHagerty ER Net Trainer) (5:56 DBeyer R.N.) US Pelvic Complete Urgent (05:46 07/07/2016 PHutchinson DO) (Ack 5:52 CHagerty ER Net Trainer) (7:33 KHoerner) PCT (Procalcitonin) Urgent (06:15 07/07/2016 PHutchinson DO) (Ack 6:18 CHagerty ER Net Trainer) (7:33 KHoerner) MEDICATION ORDERS: Phenergan IV 12.5 mg (HIGH ALERT MEDICATION, NOW) (06:36 07/07/2016 [facility]) (Ack 6:45 RCrebekahier R.N.) (6:49 DBeyer R.N.) IV FLUIDS: IV NS : initial bolus 1000 mL (1000 mL/hr), then 500 mL/hr for X2 (NOW) (05:42 07/07/2016 [facility]) (5:53 DBeyer R.N.) Zofran IV 4 mg (NOW) (05:42 07/07/2016 [facility]) (5:53 DBeyer R.N.) Toradol IV 15 mg (NOW) (05:46 07/07/2016 [facility]) (5:53 DBeyer R.N.) Toradol IV 15 mg (NOW) (06:36 07/07/2016 [facility]) (Ack 6:45 RCollier R.N.) (6:48 DBeyer R.N.) ORDER SHEET NOTES: [Electronically signed by Maverick Dong R.N. (08:40 07/07/2016)] [Electronically signed by Александр Rosales DO (08:50 07/07/2016)] [Electronically locked/signed by Maverick Dong R.N. (08:40 07/07/2016)]
--- NOTE | 2016-07-08 02:31 | ED MAR SUMMARY ---
..... Medication Administration Record [facility] [address] [place] [address] Patient: KYLEE BEAVER Visit ID: [id number] 26y, F Weight: 95.2 kg Height/Length: 67 in BMI: 32.9 ALLERGIES: No Known Drug Allergy Start 05:52 07/07/2016 Bonifacio Yo R.N., Stop 08:27 07/07/2016 Maverick Dong R.N. Medication Administered: IV NS (SALINE), Dose: IV Fluids, Bolus: 1000 mL wide open, Dispensed: 1000 mL bag, Site: #1 right. Medication Ordered: IV NS : initial bolus 1000 mL (1000 mL/hr), then 500 mL/hr for X2 (NOW). Given 05:53 07/07/2016 Bonifacio Yo R.N. Medication Administered: ZOFRAN [IVP] (ONDANSETRON HCL), Dose: 4 mg IVP over 2 minute(s), Site: #1 right. Medication Ordered: Zofran IV 4 mg (NOW). Given 05:53 07/07/2016 Bonifacio Yo R.N. Medication Administered: TORADOL [IVP], Dose: 15 mg IVP over 2 second(s), Site: #1 right. Medication Ordered: Toradol IV 15 mg (NOW). Given 06:48 07/07/2016 Bonifacio Yo R.N. Medication Administered: TORADOL [IVP], Dose: 15 mg IVP over 2 minute(s), Site: #1 right. Medication Ordered: Toradol IV 15 mg (NOW). Given 06:48 07/07/2016 Bonifacio Yo R.N. Medication Administered: PHENERGAN [IVP] (PROMETHAZINE HCL), Dose: 12.5 mg IVP over 2 minute(s), Site: #1 right. Medication Ordered: Phenergan IV 12.5 mg (HIGH ALERT MEDICATION, NOW).
--- NOTE | 2016-07-08 02:31 | ED CLINICAL REPORT ---
Clinical Report - Physicians/Mid Levels [facility] [address] [place] [address] 07/07/2016 5:21 Patient: KYLEE BEAVER Time Seen: 05:30. Arrived- By private vehicle. Historian- patient. HISTORY OF PRESENT ILLNESS Chief Complaint: ABDOMINAL PAIN and VOMITING and NAUSEA. At its maximum, severity described as moderate. When seen in the E.D., severity described as moderate. Modifying factors- worsened by swallowing. Relieved by rest. It is described as "pain". No radiation. It is described as located in the right pelvis, left lower quadrant and left pelvis, in the pelvic area and in the suprapubic area. This started several days ago and is still present. It was gradual in onset and has been waxing/waning (pt states pain noted initially in the RLQ, but then "moved" to the LLQ). The patient has had loss of appetite and vomiting. No diarrhea. Similar symptoms previously: Recent medical care: The patient was seen recently by a health care provider. REVIEW OF SYSTEMS No constipation, black stools, hematemesis, difficulty with urination or pain with urination. No urinary frequency, bloody stools, fever, headache or sore throat. No chest pain, difficulty breathing, cough, joint pain or skin rash. The patient has had back pain. It has been similar to previous symptoms. All systems otherwise negative, except as recorded above. PAST HISTORY Heart disease. PCP: Dr Kamran Lindsey Problems: Biliary Colic. Gastroenteritis. Sick Contact. Abdominal Pain. Appendicitis. Chronic Back Pain. UTI - Urinary Tract Infection. Spontaneous (Miscarriage). Right ovarian cyst. Intrauterine . Vaginal Bleeding. Care. OB History. Food Poisoning. Anemia. Substance Abuse. Ureterolithiasis. Viral Disease. Diarrhea. Vomiting. Additional Surgeries: Appendectomy. Cholecystectomy. . Lumpectomy ADDITIONAL MEDICAL/SURGICAL HISTORY FROM OLD RECORDS: Past medical/surgical history: Significant for C-sections x2, left breast biopsy for benign disease, suffers from depression/anxiety since the loss of her [id number]-mrw daughter. Medications: FLUoxetine HCl Oral. Omeprazole Oral. Zofran ODT Oral. Allergies: No Known Drug Allergy. SOCIAL HISTORY Smoker- current status unknown. History of drug use: marijuana. No alcohol use. Residence: [place]. She is . She has a son and a daughter that is from age 14 months from a brain tumor. The patient smokes a pack cigarettes a day. Does not drink alcohol. Drinks 1 cup of coffee per day. Uses recreational marijuana for her back pain. She is a homemaker. ADDITIONAL NOTES The nursing notes have been reviewed. PHYSICAL EXAM Vital Signs: 07/07/2016 05:27 BP: 119/84. HR: 102. RR: 18. O2 saturation: 97%. Temp: 99.4 F. Appearance: Alert. Oriented X3. Patient in mild distress. Eyes: Eyes normal inspection. No scleral icterus or pale conjunctivae. ENT: Pharynx normal. No pharyngeal erythema or tonsillar exudate. The mucous membranes are not dry. Neck: Normal inspection. Neck supple. CVS: Tachycardia. Heart sounds normal. Pulses normal. Respiratory: No respiratory distress. Breath sounds normal. Abdomen: Soft. Tenderness in the suprapubic area, left lower quadrant and lower abdomen. No mass. No rebound tenderness or guarding. Back: Normal inspection. No CVA tenderness. Skin: Skin warm and dry. Normal skin color. Normal skin turgor. Extremities: Extremities exhibit normal ROM. No lower extremity edema. Neuro: Oriented X 3. No motor deficit. LABS, X-RAYS, AND EKG Pelvic Sonogram: Normal study. No free fluid. Left ovary not well seen. Laboratory Tests: UA-Culture if indicated: (NEETA: 07/07/2016 05:39) ( MsgRcvd 07/07/2016 06:01) Final results Test Result Flag Units (Reference) URINE COLOR YELLOW URINE APPEARANCE CLEAR URINE GLUCOSE NEGATIVE (NEGATIVE) URINE BILIRUBIN NEGATIVE (NEGATIVE) URINE KETONE NEGATIVE (NEGATIVE) URINE SPECIFIC GRAVITY 1.020 (1.010-1.030) URINE PH 6.5 (5.0-8.0) URINE PROTEIN NEGATIVE (NEGATIVE) URINE UROBILINOGEN 1.0 EU/dL (0.2-1.0) URINE NITRITE NEGATIVE (NEGATIVE) URINE BLOOD NEGATIVE (NEGATIVE) URINE LEUK ESTERASE NEGATIVE (NEGATIVE) URINE RBC 0-1 rbc/hpf (0-1) URINE WBC 0-1 wbc/hpf (0-1) URINE EPITHELIAL CELLS 1-3 EPI/hpf (0-5) URINE BACTERIA NONE SEEN (NONE SEEN) URINE COMMENT CULT NOT INDICATED URINE CULTURES ARE SET-UP BASED ON THE FOLLOWING CRITERIA:POSITIVE NITRITEPOSITIVE LEUKOCYTE ESTERASEGREATER THAN 10 WHITE BLOOD CELLSMODERATE (2+) OR GREATER BACTERIA Urine: (NEETA: 07/07/2016 05:39) ( [facility] 07/07/2016 05:57) Final results Test Result Flag Units (Reference) URINE NEGATIVE CBC w Diff: (NEETA: 07/07/2016 05:40) ( [facility] 07/07/2016 05:55) Final results Test Result Flag Units (Reference) WHITE BLOOD COUNT 6.1 K/uL (4.5-11.5) RED BLOOD COUNT 5.08 M/uL (4.00-5.20) HEMOGLOBIN 11.6 L gm/dL (12.0-16.0) HEMATOCRIT 36.6 % (36.0-46.0) MEAN CELL VOLUME 72 L fL (80-100) MEAN CORPUSCULAR HGB 23 L pg (26-34) MEAN CORPUSCULAR HGB CONC 32 g/dL (31-37) RED CELL DISTRIBUTION WIDTH 17.0 H % (11.6-14.8) PLATELET COUNT 259 K/uL (150-400) NEUTROPHIL % 85.3 H % (50-75) LYMPH % 9.0 L % (25-40) MONO % 5.3 % (3-14) EOSINOPHIL % 0.3 % (0-4) BASOPHIL % 0.1 % (0-2) [id number]: (NEETA: 07/07/2016 05:40) ( [facility] 07/07/2016 06:52) Final results Test Result Flag Units (Reference) PROCALCITONIN <0.5 ng/mL (0-0.5) PCT Concentration: Interpretation : Risk/option for action PCT <=0.5 ng/mL : Systemic : Low risk forinfection(sepsis): progression to severeis not likely. : systemic infection.Local bacterial : CAUTION-PCT levelsinfection is : below 0.5 ng/mL do notpossible. : exclude an infection,because localizedinfections (withoutsystemic signs) may beassociated with suchlow levels. If PCT ismeasured very earlyafter a bacterialchallenge (usually <6hours), these valuesmay still be low. Inthis case PCT shouldbe re-assessed 6-24hours later. PCT >0.5 and : Systemic infection: Moderate risk for<= 2 ng/mL : (sepsis) is : progression to severepossible, but : systemic infection.other conditions : The patient should beare known to : closely monitoredelevate PCT. : both clinically andby re-assessing PCTwithin 6-24 hours. PCT > 2 ng/mL : Systemic infection: High risk for(sepsis) is likely: progression to severeunless other : systemic infection.causes are known. : PCT >= 10 ng/mL : Important systemic: High likelihood ofinflammatory : severe sepsis orresponse, almost : septic shock.exclusively due to:severe bacterial :sepsis or septic :shock. : Urine Drug Screen: (NEETA: 07/07/2016 05:39) ( MsgRcvd 07/07/2016 06:10) Final results Test Result Flag Units (Reference) AMPHETAMINE/METHAMPHETAMINE NEGATIVE (NEGATIVE) BARBITURATE NEGATIVE (NEGATIVE) BENZODIAZEPINE NEGATIVE (NEGATIVE) CANNABINOID POSITIVE H (NEGATIVE) COCAINE NEGATIVE (NEGATIVE) ECSTASY NEGATIVE (NEGATIVE) METHADONE NEGATIVE (NEGATIVE) OPIATE POSITIVE H (NEGATIVE) The urine drug screen is a qualitative screening test fordrug overdose and abuse. All screen results should beconsidered as presumptive.Drugs screened for are as follows:BenzodiazepinesCocaineAmphetamines/MetamphetaminesTHC (Tetrahydrocannabinol)OpiatesBarbituratesEcstasyMethadonePositive results are unconfirmed. For confirmation, notifythe lab for the specimen to be sent to the reference lab.All confirmations must be performed by a differentmethodology.The ingestion of natural herbal and plant productscontaining Ephedra/Ephedra metabolites can produce in urineone or more substances capable of cross reacting withamphetamine/methamphetamine immunoassays. These testsprovide a preliminary result only. A more specificalternative chemical method must be used to obtain aconfirmed analytical result. CMP: (NEETA: 07/07/2016 05:40) ( MsgRcvd 07/07/2016 06:09) Final results Test Result Flag Units (Reference) GLUCOSE 122 H mg/dL (70-110) BUN 11 mg/dL (7-18) CREATININE 0.6 mg/dL (0.6-1.3) Estimated GFR >60 mL/min Estimated GFR- >60 mL/min Note: Persistent reduction over 3 months in eGFR<60 mL/min/1.73 m2 defines CKD. Patients with eGFR values>=60 mL/min/1.73 m2 may also have CKD if evidence ofpersistent proteinuria. Additional information may be foundat www.kidney.org. SODIUM 140 mmol/L (136-145) POTASSIUM 3.8 mmol/L (3.5-5.1) CHLORIDE 103 mmol/L (98-107) CARBON DIOXIDE 24 mmol/L (21-32) CALCIUM 9.0 mg/dL (8.5-10.1) TOTAL PROTEIN 8.2 g/dL (6.4-8.2) ALBUMIN 4.0 g/dL (3.3-5.0) BILIRUBIN, TOTAL 0.9 mg/dL (0.0-1.0) ALKALINE PHOSPHATASE 99 U/L (46-116) AST (SGOT) 16 U/L (15-37) ALT (SGPT) 27 U/L (12-78) LIPASE 98 U/L (73-393) AMYLASE 49 U/L (25-115) . Pulse Oximetry: 07/07/2016 05:27 O2 saturation: 97%. (FIO2 - room air). Interpretation: normal. PROGRESS AND PROCEDURES Course of Care: Normal Saline 1 liter IVPB given. Toradol 15 mg + 15 mg IVP given. Phenergan 12.5 mg IVP given. Zofran 4 mg IVP given. Patient is stable. Physical exam findings are improved. Symptoms better. 07/07/2016 08:20 BP: 105/61. HR: 60. RR: 16. O2 saturation: 100%. Temp: 98 F. Pain level now: 9/10. Nonsurgical abdominal exam. Normal WBC, PCT. No fever now. US normal but left ovary not well visualized, but no free fluid despite several days of symptoms. Pt has had multiple CT scans in her 25 ED visits in just the past 12 months - I will hold CT for now (to reduce ionizing radiation risks), but she will have close out pt follow up before the end of the day today with her PCP, Dr Lindsey. She still complains of pain, but she has far exceeded the allowed narcotic Rx's by our hospital's pain care policy and by [place] state opiate prescription guidelines. She will return sooner for new or worsening symptoms or any concerns. Patient/family counseled. Old ED records reviewed. Patient has had multiple ED visits (25 visits to area ED's in past 12 months: 10 visits to [facility] ED, 14 visits to [facility]). Disposition: Discharged. Condition: stable and improved. CLINICAL IMPRESSION Vomiting with nausea. Not intractable. Acute left lower quadrant abdominal pain of unknown cause. Chronic substance abuse- tobacco (cigarettes), marijuana with anxiety. INSTRUCTIONS Rest. Do not work today. Drink plenty of fluids. Avoid alcohol. Avoid fatty, fried/greasy, lactose-containing (such as milk, cheese and ice cream), salty and spicy foods. No alcohol until released. Do not smoke. Seek medical help to quit smoking. Warnings: Further evaluation is necessary in order to recheck abnormal lab, obtain test results, conduct further tests and assess the possibility of serious illness (You may need additional imaging tests if not improving as expected). It is very important to follow up with a physician. SEDATIVE MEDICATION: You were given sedative medication during your visit. Do not drive or operate dangerous machinery. CONTROLLED SUBSTANCE WARNINGS. GENERAL WARNINGS: Return or contact your physician immediately if your condition worsens or changes unexpectedly, if not improving as expected, or if other problems arise. Your Current Medications: CONTINUE TAKING THE FOLLOWING MEDICATIONS: FLUoxetine HCl Oral. Omeprazole Oral. Zofran ODT Oral. Prescription Medications: Phenergan suppositories 25 mg: Insert 1 rectally every 4 to 6 hours as needed for nausea or vomiting. Dispense ten (10). No refills. Substitution is permissible. Follow-up: Follow up with your doctor César - AN APPOINTMENT HAS BEEN MADE FOR YOU FOR 4:30 PM TODAY, PLEASE ARRIVE AT 4:20 PM today. (Electronically signed by Александр Rosales DO 07/07/2016 8:50)
--- NOTE | 2016-07-08 02:31 | ED CLINICAL REPORT ---
Clinical Report - Physicians/Mid Levels [facility] [address] [place] [address] 07/07/2016 5:21 Patient: KYLEE BEAVER Time Seen: 05:30. Arrived- By private vehicle. Historian- patient. HISTORY OF PRESENT ILLNESS Chief Complaint: ABDOMINAL PAIN and VOMITING and NAUSEA. At its maximum, severity described as moderate. When seen in the E.D., severity described as moderate. Modifying factors- worsened by swallowing. Relieved by rest. It is described as "pain". No radiation. It is described as located in the right pelvis, left lower quadrant and left pelvis, in the pelvic area and in the suprapubic area. This started several days ago and is still present. It was gradual in onset and has been waxing/waning (pt states pain noted initially in the RLQ, but then "moved" to the LLQ). The patient has had loss of appetite and vomiting. No diarrhea. Similar symptoms previously: Recent medical care: The patient was seen recently by a health care provider. REVIEW OF SYSTEMS No constipation, black stools, hematemesis, difficulty with urination or pain with urination. No urinary frequency, bloody stools, fever, headache or sore throat. No chest pain, difficulty breathing, cough, joint pain or skin rash. The patient has had back pain. It has been similar to previous symptoms. All systems otherwise negative, except as recorded above. PAST HISTORY Heart disease. PCP: Dr Kamran Lindsey Problems: Biliary Colic. Gastroenteritis. Sick Contact. Abdominal Pain. Appendicitis. Chronic Back Pain. UTI - Urinary Tract Infection. Spontaneous (Miscarriage). Right ovarian cyst. Intrauterine . Vaginal Bleeding. Care. OB History. Food Poisoning. Anemia. Substance Abuse. Ureterolithiasis. Viral Disease. Diarrhea. Vomiting. Additional Surgeries: Appendectomy. Cholecystectomy. . Lumpectomy ADDITIONAL MEDICAL/SURGICAL HISTORY FROM OLD RECORDS: Past medical/surgical history: Significant for C-sections x2, left breast biopsy for benign disease, suffers from depression/anxiety since the loss of her [id number] daughter. Medications: FLUoxetine HCl Oral. Omeprazole Oral. Zofran ODT Oral. Allergies: No Known Drug Allergy. SOCIAL HISTORY Smoker- current status unknown. History of drug use: marijuana. No alcohol use. Residence: [place]. She is . She has a son and a daughter that is from age 14 months from a brain tumor. The patient smokes a pack cigarettes a day. Does not drink alcohol. Drinks 1 cup of coffee per day. Uses recreational marijuana for her back pain. She is a homemaker. ADDITIONAL NOTES The nursing notes have been reviewed. PHYSICAL EXAM Vital Signs: 07/07/2016 05:27 BP: 119/84. HR: 102. RR: 18. O2 saturation: 97%. Temp: 99.4 F. Appearance: Alert. Oriented X3. Patient in mild distress. Eyes: Eyes normal inspection. No scleral icterus or pale conjunctivae. ENT: Pharynx normal. No pharyngeal erythema or tonsillar exudate. The mucous membranes are not dry. Neck: Normal inspection. Neck supple. CVS: Tachycardia. Heart sounds normal. Pulses normal. Respiratory: No respiratory distress. Breath sounds normal. Abdomen: Soft. Tenderness in the suprapubic area, left lower quadrant and lower abdomen. No mass. No rebound tenderness or guarding. Back: Normal inspection. No CVA tenderness. Skin: Skin warm and dry. Normal skin color. Normal skin turgor. Extremities: Extremities exhibit normal ROM. No lower extremity edema. Neuro: Oriented X 3. No motor deficit. LABS, X-RAYS, AND EKG Pelvic Sonogram: Normal study. No free fluid. Left ovary not well seen. Laboratory Tests: UA-Culture if indicated: (NEETA: 07/07/2016 05:39) ( MsgRcvd 07/07/2016 06:01) Final results Test Result Flag Units (Reference) URINE COLOR YELLOW URINE APPEARANCE CLEAR URINE GLUCOSE NEGATIVE (NEGATIVE) URINE BILIRUBIN NEGATIVE (NEGATIVE) URINE KETONE NEGATIVE (NEGATIVE) URINE SPECIFIC GRAVITY 1.020 (1.010-1.030) URINE PH 6.5 (5.0-8.0) URINE PROTEIN NEGATIVE (NEGATIVE) URINE UROBILINOGEN 1.0 EU/dL (0.2-1.0) URINE NITRITE NEGATIVE (NEGATIVE) URINE BLOOD NEGATIVE (NEGATIVE) URINE LEUK ESTERASE NEGATIVE (NEGATIVE) URINE RBC 0-1 rbc/hpf (0-1) URINE WBC 0-1 wbc/hpf (0-1) URINE EPITHELIAL CELLS 1-3 EPI/hpf (0-5) URINE BACTERIA NONE SEEN (NONE SEEN) URINE COMMENT CULT NOT INDICATED URINE CULTURES ARE SET-UP BASED ON THE FOLLOWING CRITERIA:POSITIVE NITRITEPOSITIVE LEUKOCYTE ESTERASEGREATER THAN 10 WHITE BLOOD CELLSMODERATE (2+) OR GREATER BACTERIA Urine: (NEETA: 07/07/2016 05:39) ( [facility] 07/07/2016 05:57) Final results Test Result Flag Units (Reference) URINE NEGATIVE CBC w Diff: (NEETA: 07/07/2016 05:40) ( [facility] 07/07/2016 05:55) Final results Test Result Flag Units (Reference) WHITE BLOOD COUNT 6.1 K/uL (4.5-11.5) RED BLOOD COUNT 5.08 M/uL (4.00-5.20) HEMOGLOBIN 11.6 L gm/dL (12.0-16.0) HEMATOCRIT 36.6 % (36.0-46.0) MEAN CELL VOLUME 72 L fL (80-100) MEAN CORPUSCULAR HGB 23 L pg (26-34) MEAN CORPUSCULAR HGB CONC 32 g/dL (31-37) RED CELL DISTRIBUTION WIDTH 17.0 H % (11.6-14.8) PLATELET COUNT 259 K/uL (150-400) NEUTROPHIL % 85.3 H % (50-75) LYMPH % 9.0 L % (25-40) MONO % 5.3 % (3-14) EOSINOPHIL % 0.3 % (0-4) BASOPHIL % 0.1 % (0-2) [id number]: (NEETA: 07/07/2016 05:40) ( [facility] 07/07/2016 06:52) Final results Test Result Flag Units (Reference) PROCALCITONIN <0.5 ng/mL (0-0.5) PCT Concentration: Interpretation : Risk/option for action PCT <=0.5 ng/mL : Systemic : Low risk forinfection(sepsis): progression to severeis not likely. : systemic infection.Local bacterial : CAUTION-PCT levelsinfection is : below 0.5 ng/mL do notpossible. : exclude an infection,because localizedinfections (withoutsystemic signs) may beassociated with suchlow levels. If PCT ismeasured very earlyafter a bacterialchallenge (usually <6hours), these valuesmay still be low. Inthis case PCT shouldbe re-assessed 6-24hours later. PCT >0.5 and : Systemic infection: Moderate risk for<= 2 ng/mL : (sepsis) is : progression to severepossible, but : systemic infection.other conditions : The patient should beare known to : closely monitoredelevate PCT. : both clinically andby re-assessing PCTwithin 6-24 hours. PCT > 2 ng/mL : Systemic infection: High risk for(sepsis) is likely: progression to severeunless other : systemic infection.causes are known. : PCT >= 10 ng/mL : Important systemic: High likelihood ofinflammatory : severe sepsis orresponse, almost : septic shock.exclusively due to:severe bacterial :sepsis or septic :shock. : Urine Drug Screen: (NEETA: 07/07/2016 05:39) ( MsgRcvd 07/07/2016 06:10) Final results Test Result Flag Units (Reference) AMPHETAMINE/METHAMPHETAMINE NEGATIVE (NEGATIVE) BARBITURATE NEGATIVE (NEGATIVE) BENZODIAZEPINE NEGATIVE (NEGATIVE) CANNABINOID POSITIVE H (NEGATIVE) COCAINE NEGATIVE (NEGATIVE) ECSTASY NEGATIVE (NEGATIVE) METHADONE NEGATIVE (NEGATIVE) OPIATE POSITIVE H (NEGATIVE) The urine drug screen is a qualitative screening test fordrug overdose and abuse. All screen results should beconsidered as presumptive.Drugs screened for are as follows:BenzodiazepinesCocaineAmphetamines/MetamphetaminesTHC (Tetrahydrocannabinol)OpiatesBarbituratesEcstasyMethadonePositive results are unconfirmed. For confirmation, notifythe lab for the specimen to be sent to the reference lab.All confirmations must be performed by a differentmethodology.The ingestion of natural herbal and plant productscontaining Ephedra/Ephedra metabolites can produce in urineone or more substances capable of cross reacting withamphetamine/methamphetamine immunoassays. These testsprovide a preliminary result only. A more specificalternative chemical method must be used to obtain aconfirmed analytical result. CMP: (NEETA: 07/07/2016 05:40) ( MsgRcvd 07/07/2016 06:09) Final results Test Result Flag Units (Reference) GLUCOSE 122 H mg/dL (70-110) BUN 11 mg/dL (7-18) CREATININE 0.6 mg/dL (0.6-1.3) Estimated GFR >60 mL/min Estimated GFR- >60 mL/min Note: Persistent reduction over 3 months in eGFR<60 mL/min/1.73 m2 defines CKD. Patients with eGFR values>=60 mL/min/1.73 m2 may also have CKD if evidence ofpersistent proteinuria. Additional information may be foundat www.[email or web address].org. SODIUM 140 mmol/L (136-145) POTASSIUM 3.8 mmol/L (3.5-5.1) CHLORIDE 103 mmol/L (98-107) CARBON DIOXIDE 24 mmol/L (21-32) CALCIUM 9.0 mg/dL (8.5-10.1) TOTAL PROTEIN 8.2 g/dL (6.4-8.2) ALBUMIN 4.0 g/dL (3.3-5.0) BILIRUBIN, TOTAL 0.9 mg/dL (0.0-1.0) ALKALINE PHOSPHATASE 99 U/L (46-116) AST (SGOT) 16 U/L (15-37) ALT (SGPT) 27 U/L (12-78) LIPASE 98 U/L (73-393) AMYLASE 49 U/L (25-115) . Pulse Oximetry: 07/07/2016 05:27 O2 saturation: 97%. (FIO2 - room air). Interpretation: normal. PROGRESS AND PROCEDURES Course of Care: Normal Saline 1 liter IVPB given. Toradol 15 mg + 15 mg IVP given. Phenergan 12.5 mg IVP given. Zofran 4 mg IVP given. Patient is stable. Physical exam findings are improved. Symptoms better. 07/07/2016 08:20 BP: 105/61. HR: 60. RR: 16. O2 saturation: 100%. Temp: 98 F. Pain level now: 9/10. Nonsurgical abdominal exam. Normal WBC, PCT. No fever now. US normal but left ovary not well visualized, but no free fluid despite several days of symptoms. Pt has had multiple CT scans in her 25 ED visits in just the past 12 months - I will hold CT for now (to reduce ionizing radiation risks), but she will have close out pt follow up before the end of the day today with her PCP, Dr Lindsey. She still complains of pain, but she has far exceeded the allowed narcotic Rx's by our hospital's pain care policy and by [place] state opiate prescription guidelines. She will return sooner for new or worsening symptoms or any concerns. Patient/family counseled. Old ED records reviewed. Patient has had multiple ED visits (25 visits to area ED's in past 12 months: 10 visits to [facility] ED, 14 visits to [facility]). Disposition: Discharged. Condition: stable and improved. CLINICAL IMPRESSION Vomiting with nausea. Not intractable. Acute left lower quadrant abdominal pain of unknown cause. Chronic substance abuse- tobacco (cigarettes), marijuana with anxiety. INSTRUCTIONS Rest. Do not work today. Drink plenty of fluids. Avoid alcohol. Avoid fatty, fried/greasy, lactose-containing (such as milk, cheese and ice cream), salty and spicy foods. No alcohol until released. Do not smoke. Seek medical help to quit smoking. Warnings: Further evaluation is necessary in order to recheck abnormal lab, obtain test results, conduct further tests and assess the possibility of serious illness (You may need additional imaging tests if not improving as expected). It is very important to follow up with a physician. SEDATIVE MEDICATION: You were given sedative medication during your visit. Do not drive or operate dangerous machinery. CONTROLLED SUBSTANCE WARNINGS. GENERAL WARNINGS: Return or contact your physician immediately if your condition worsens or changes unexpectedly, if not improving as expected, or if other problems arise. Your Current Medications: CONTINUE TAKING THE FOLLOWING MEDICATIONS: FLUoxetine HCl Oral. Omeprazole Oral. Zofran ODT Oral. Prescription Medications: Phenergan suppositories 25 mg: Insert 1 rectally every 4 to 6 hours as needed for nausea or vomiting. Dispense ten (10). No refills. Substitution is permissible. Follow-up: Follow up with your doctor César - AN APPOINTMENT HAS BEEN MADE FOR YOU FOR 4:30 PM TODAY, PLEASE ARRIVE AT 4:20 PM today. (Electronically signed by Александр Rosales DO 07/07/2016 8:50)
== END 2016-07-07 08:39 | disposition home or self-care (01) ==
LOC: ED SRH 05:19
DX: R11.2 Nausea with vomiting, unspecified (principal); R10.32 Left lower quadrant pain; F17.210 Nicotine dependence, cigarettes, uncomplicated; F12.180 Cannabis abuse with cannabis-induced anxiety disorder; Z79.899 Other long term (current) drug therapy
CPT/HCPCS: 90004; 90100; 92235; 92530; 92760; 92761; 92762; 92763; 92764; 92765; 92766; 92767; 93004; 93070; 95059